=== PATIENT | female | born 1955 | race Caucasian/White ===

== ENCOUNTER → 2020-06-14 14:37 | Outpatient (CLI) | payer MEDICARE, SELFPAY ==
--- NOTE | ~2020-06-14 | MM_ITS ---
EXAMINATION: MM screening [facility] BI w emmanuel HISTORY: Screening mammogram TECHNIQUE: Craniocaudal and mediolateral oblique 3-D tomosynthesis images were obtained and synthetic 2-D images were generated. CAD analysis was submitted and interpreted. COMPARISON: 04/18/2019, 03/30/2018, 03/07/2016 BREAST PARENCHYMAL COMPOSITION: There are scattered areas of fibroglandular density. FINDINGS: There is no evidence of suspicious mass, calcification, or architectural distortion to sugg est malignancy in either breast. There has been no suspicious interval change. IMPRESSION: 1. No mammographic evidence of malignancy. 2. Recommend routine screening mammography in one year. BI-RADS Category 1: Negative Reviewed, dictated and finalized at location A.
== END ==
PROVIDERS: PCP Internal Medicine; Visit Provider Obstetrics & Gynecology Gynecology
DX: Z12.31 Encounter for screening mammogram for malignant neoplasm of breast (principal)
CPT/HCPCS: 77063; 77067

== ENCOUNTER 2020-10-21 07:22 | Emergency (ER) | payer MEDICARE, SELFPAY ==
[2020-10-21] VITALS (19 sets, daily range): BP systolic 149–185; BP diastolic 69–94; PULSE 87–107; RESP 15–30; TEMP 37.6–37.7; O2SAT 94–97
--- NOTE | ~2020-10-21 | XR_ITS ---
EXAMINATION: XR chest 1V portable DATE: 10/21/2020 07:55 INDICATION: Shortness of breath. COVID-19 pneumonia. TECHNIQUE: A single frontal view of the chest was obtained. COMPARISON: Chest 2 views 07/16/2011 FINDINGS: There are patchy airspace opacities in right mid and lower lung zones and all left lung zon es. No pleural effusion or pneumothorax. The heart size is normal. IMPRESSION: 1. Patchy airspace opacities in right mid and lower lung zones and all left lung zones, consistent wi th pneumonia. Reviewed, dictated and finalized at location A. A [place] IMPRESSION: 1. Patchy airspace opacities in right mid and lower lung zones and all left lindsey g zones, consistent with pneumonia.
--- NOTE | 2020-10-21 07:54 | ECG_ITS ---
Measurements Intervals [place] Rate: 100 P: 37 [place]: 157 QRS: -45 QRSD: 102 T: 19 QT: 310 QTc: 400 Interpretive Statements SINUS TACHYCARDIA LEFT ATRIAL ENLARGEMENT INCOMPLETE RIGHT BUNDLE BRANCH BLOCK LEFT ANTERIOR FASCICULAR BLOCK BORDERLINE T WAVE ABNORMALITY- INFERIOR LEADS ABNORMAL ECG Electronically Signed On 10-21-2020 11:26:50 CRM SYSTEM ADMINISTRATOR by Niranjan Brice D.O.
[2020-10-21 08:03] LABS: Basophils Percent Auto 0.3 % (0.2-1.2); Eosinophils Percent Auto 0.1 % (0-4.4); Hematocrit 39.7 % (37.0-47.0); Hemoglobin 13.3 g/dL (12.0-15.0); Immature Granulocyte Absolute 0.07 K/mm3 (0.00-0.031); Immature Granulocyte Percent A 0.7 % (0-0.5); Lymphocytes Absolute Auto 0.84 K/mm3 (0.9-3.2); Lymphocytes Percent Auto 7.9 % (18.3-44.2); Mean Corpuscular HGB Conc 33.5 g/dl (32-36); Mean Corpuscular Hemoglobin 29.6 pg (26-34); Mean Corpuscular Volume 88.2 fl (80-100); Mean Platelet Volume 9.8 fl (7.4-10.4); Monocytes Absolute Auto 0.6 K/mm3 (0.1-0.6); Monocytes Percent Auto 5.6 % (2.6-8.5); Neutrophils Absolute Auto 9.1 K/mm3 (1.3-6.7); Neutrophils Percent Auto 85.4 % (45.5-73.1); Platelet Count Result 206 k/mm3 (150-375); Red Cell Distribution Width 12.4 % (11.5-14.5); White Blood Count 10.6 K/mm3 (4.5-10.0)
--- NOTE | 2020-10-21 08:04 | ED.GENADULT ---
HPI - General Adult General Chief complaint: Fever Stated complaint: FEVER, +COVID Time Seen by Provider: 10/21/20 07:35 Source: patient History of Present Illness HPI narrative: Patient is a 64 y/o female complaining of fever starting 2 days ago. She states that her fever was up to 101.5. She state that she took Tylenol and Ibuprofen, which did not help much. She also has headache and cough. She denies any neck pain or stiffness. She tested positive for COVID on 10/10/20. However, she did not have a fever at that time. She states that she had a cough and loss of taste and smell. Related Data Home Medications Medication Instructions Recorded Confirmed diltiazem HCl PO DAILY 10/21/20 levothyroxine PO 10/21/20 lisinopril PO 10/21/20 rosuvastatin mg 10/21/20 Allergies Allergy/AdvReac Type Severity Reaction Status Date / Time No Known Allergies Allergy Verified 10/21/20 07:38 Review of Systems Constitutional: Constitutional: Denies chills, Reports fever(s), Reports headache(s) and Denies weakness Eyes: Eyes: Denies blurry vision ENT: Denies headache(s), Reports neck pain and Reports other (loss of taste and smell) Cardiovascular: Cardiovascular: Denies chest pain and Denies dyspnea Respiratory: Respiratory: Denies cough and Denies dyspnea Gastrointestinal: Gastrointestinal: Denies abdominal pain, Denies diarrhea, Denies nausea and Denies vomiting Genitourinary: Genitourinary: Denies hematuria and Denies dysuria Musculoskeletal: Musculoskeletal: Denies back pain and Denies neck pain Neurologic: Reports headache(s) and Denies weakness [facility] Family History Family History Father Family history of primary malignant neoplasm of liver Mother Family history of malignant neoplasm of uterus Family history of malignant neoplasm of breast in first degree relative Cerebrovascular accident, Onset Age: 84 Social History Social History Smoking status: Never smoker Alcohol intake: never Exam Const: General: no acute distress and well developed Orientation/consciousness: oriented to person, oriented to place, oriented to time and patient oriented x3 HENMT: Head: normocephalic Ears: external ears normal General nose exam: Normal external nose present Eyes: General: appearance normal, both eyes and all related structures Conjunctivae: conjunctivae normal Neck: Neck: normal visual inspection and full ROM Chest: Chest palpation & inspection: normal inspection of the chest and no tenderness Resp: Effort & Inspection: normal respiratory effort Auscultation: clear to auscultation bilaterally Cardio: Rate: tachycardic Rhythm: regular rhythm GI: GI Palp: No abdominal tenderness and Yes Soft to palpation Skin: General skin exam: normal color and turgor normal Neuro: General: oriented to person, oriented to place, oriented to time and patient oriented x3 Cognition (Neuro): normal cognition Extrem: General: normal to inspection, full ROM and no pedal edema Psych: Appearance: grossly normal Mental Status: mental status grossly normal Affect: normal affect Course Vital Signs Vital signs: Vital Signs Temperature 37.7 C H 10/21/20 07:34 Pulse Rate 107 H 10/21/20 07:34 Respiratory Rate 15 10/21/20 07:34 Blood Pressure 185/94 H 10/21/20 07:34 Pulse Oximetry 95 10/21/20 07:34 Temperature 37.6 C H 10/21/20 10:26 Pulse Rate 88 10/21/20 10:44 Respiratory Rate 16 10/21/20 10:44 Blood Pressure 156/88 H 10/21/20 10:44 Pulse Oximetry 96 10/21/20 10:44 Medical Decision Making Vital Signs Vital Signs: Vital Signs Temperature 37.7 C H 10/21/20 07:34 Pulse Rate 107 H 10/21/20 07:34 Respiratory Rate 15 10/21/20 07:34 Blood Pressure 185/94 H 10/21/20 07:34 Pulse Oximetry 95 10/21/20 07:34 Temperature 37.6 C H 10/21/20 10:26 Pulse Rate 88
[2020-10-21] MEDS: diphenhydrAMINE HCl INJ 50 MG/ML VIAL 25 MG IV PUSH (08:16)
[2020-10-21] MEDS: KETOROLAC 30 MG/ML VIAL (*BKC) IV PUSH (08:16)
[2020-10-21] MEDS: SODIUM CHLORIDE 0.9% IV 1,000 ML 999 ML IV CONT (08:16)
[2020-10-21] MEDS: METOCLOPRAMIDE HCL 10 MG TABLET PO (08:17)
[2020-10-21 08:24] LABS: Alanine Aminotransferase 51 U/L (4-35); Albumin Level 3.4 g/dL (3.5-5.1); Alkaline Phosphatase 89 U/L (38-126); Anion Gap 5 mmol/L (8-16); Aspartate Amino Transferase 45 U/L (14-36); Bilirubin,Total 0.5 mg/dL (0.2-1.3); Blood Urea Nitrogen 16 mg/dL (7-17); Calcium 8.3 mg/dL (8.4-10.2); Carbon Dioxide 26 mmol/L (22-30); Chloride 104 mmol/L (98-107); Estimated CRCL calculation 50 ml/min; Estimated Glomerular Filt Rate > 60; Glucose 119 mg/dL (65-105); Potassium 3.5 mmol/L (3.4-5.0); Sodium 135 mmol/L (137-145)
== END 2020-10-21 10:47 | disposition home or self-care (01) ==
PROVIDERS: Emergency Provider Emergency Medicine; PCP Internal Medicine
DX: U07.1 COVID-19 (principal); J12.82 Pneumonia due to coronavirus disease 2019; R51.9 Headache, unspecified; R00.0 Tachycardia, unspecified; I45.2 Bifascicular block; R94.31 Abnormal electrocardiogram [ECG] [EKG]
CPT/HCPCS: 36415; 71045; 80053; 85025; 93005; 96361; 96374; 96375; 99284; A9270; J1200; J1885; J7030

== ENCOUNTER → 2021-06-17 07:18 | Outpatient (CLI) | payer MEDICARE, OTHER, SELFPAY ==
--- NOTE | ~2021-06-17 | MM_ITS ---
EXAMINATION: MM screening tray BI w emmanuel HISTORY: Screening mammogram, family history of breast cancer in her mother. TECHNIQUE: Craniocaudal and mediolateral oblique 3-D tomosynthesis images were obtained and synthetic 2-D images were generated. CAD analysis was submitted and interpreted. COMPARISON: 06/14/2020, 04/18/2019, 03/30/2018 BREAST PARENCHYMAL COMPOSITION: There are scattered areas of fibroglandular density. FINDINGS: There is no evidence of suspicious mass, calcification, or architectural distortion to sugg est malignancy in either breast. There has been no suspicious interval change. IMPRESSION: 1. No mammographic evidence of malignancy. 2. Recommend routine screening mammography in one year. BI-RADS Category 1: Negative Reviewed, dictated and finalized at location A.
== END ==
PROVIDERS: PCP Internal Medicine; Visit Provider Obstetrics & Gynecology Gynecology
DX: Z12.31 Encounter for screening mammogram for malignant neoplasm of breast (principal)
CPT/HCPCS: 77063; 77067

== ENCOUNTER → 2021-07-18 10:15 | Outpatient (CLI) | payer MEDICARE, OTHER, SELFPAY ==
--- NOTE | ~2021-07-18 | DEXA_ITS ---
Bone Density Report Name: Maureen Mcmahon Age: 65 Sex: Female Ethnicity: White Date of : 1955 Indication: postmenopausal; screening for osteoporosis; parental hip fracture; hysterectomy; Referring Provider: UMANG STRICKLAND Study: Bone densitometry was performed. Exam Date: July 18, 2021 Accession number: [id number] Bone Density: Region BMD T-score Z-score Classification AP Spine (L1-L4) 1.050 0.0 2.0 Normal Femoral Neck (Left) 0.694 -1.4 0.3 Osteopenia Total Hip (Left) 0.767 -1.4 -0.1 Osteopenia Femoral Neck (Right) 0.711 -1.2 0.4 Osteopenia Total Hip (Right) 0.871 -0.6 0.8 Normal Total Hip Mean 0.819 -1.0 0.4 Normal World Health Organization criteria for BMD impression classify patients as: Normal (T-score at or above -1.0), Osteopenia (T-score between -1.0 and -2.5), or Osteoporosis (T-score at or below -2.5). 10-year Fracture Risk(1): Major Osteoporotic Fracture 16% Hip Fracture 1.6% Reported Risk Factors: [place] (), Neck BMD=0.694, BMI=28.0, parental fracture (1) FRAX(R) Version 3.08. Fracture probability calculated for an untreated patient. Fracture probability may be lower if the patient has received treatment. Previous Exams: Region Exam Age BMD T-score BMD Change BMD Change Date g/cm2 vs Baseline vs Previous AP Spine(L1-L4) 07/18/2021 65 1.050 0.0 -0.023* 0.042* 03/06/2017 61 1.008 -0.4 -0.065* 0.017 02/28/2013 57 0.991 -0.5 -0.082* -0.019 02/20/2010 54 1.010 -0.3 -0.064* -0.064* 10/09/2006 50 1.073 0.2 Total Hip(Left) 07/18/2021 65 0.767 -1.4 -0.147* -0.086* 03/06/2017 61 0.854 -0.7 -0.060* -0.065* 02/28/2013 57 0.919 -0.2 0.005 0.002 02/20/2010 54 0.917 -0.2 0.003 0.003 10/09/2006 50 0.914 -0.2 Total Hip(Right) 07/18/2021 65 0.871 -0.6 -0.107* -0.042* 03/06/2017 61 0.914 -0.2 -0.065* -0.014 02/28/2013 57 0.927 -0.1 -0.051* 0.037* 02/20/2010 54 0.891 -0.4 -0.087* -0.087* 10/09/2006 50 0.978 0.3 *Denotes significance at 95% confidence level, LSC for AP Spine = 0.022 g/cm2, LSC for Total Hip = 0.027 g/cm2 Clinical Information Provided by Patient: Parent has had a hip fracture Has used the following medications: Vitamin D Has the following medical conditions: Hysterectomy Patient jodie
== END ==
PROVIDERS: PCP Internal Medicine; Visit Provider Obstetrics & Gynecology Gynecology
DX: Z78.0 Asymptomatic menopausal state (principal); M85.852 Other specified disorders of bone density and structure, left thigh; M85.851 Other specified disorders of bone density and structure, right thigh
CPT/HCPCS: 77080

== ENCOUNTER → 2022-07-22 13:43 | Outpatient (CLI) | payer MEDICARE, OTHER, SELFPAY ==
--- NOTE | ~2022-07-22 | MM_ITS ---
EXAMINATION: MM screening tray BI w emmanuel HISTORY: Screening mammogram TECHNIQUE: Craniocaudal and mediolateral oblique 3-D tomosynthesis images were obtained and synthetic 2-D images were generated. CAD analysis was submitted and interpreted. COMPARISON: 06/2021, 06/14/2020, 04/18/2019 bilateral screening mammogram examinations BREAST PARENCHYMAL COMPOSITION: There are scattered areas of fibroglandular density. FINDINGS: There is no evidence of suspicious mass, calcification, or architectural distortion to sugg est malignancy in either breast. There has been no suspicious interval change. IMPRESSION: 1. No mammographic evidence of malignancy. 2. Recommend routine screening mammography in one year. BI-RADS Category 1: Negative Reviewed, dictated and finalized at location A. [employer]AT[employer] OPERATIONS
== END ==
PROVIDERS: PCP Internal Medicine; Visit Provider Obstetrics & Gynecology Gynecology
DX: Z12.31 Encounter for screening mammogram for malignant neoplasm of breast (principal)
CPT/HCPCS: 77063; 77067

== ENCOUNTER 2023-06-15 11:48 | Outpatient (CLI) | payer MEDICARE, OTHER, SELFPAY ==
--- NOTE | 2023-06-15 12:32 | ECG_ITS ---
Measurements Intervals [place] Rate: 80 P: 31 ID: 160 QRS: -46 QRSD: 111 T: 10 QT: 370 QTc: 429 Interpretive Statements SINUS RHYTHM POSSIBLE LEFT ATRIAL ENLARGEMENT [-0.1mV P WAVE IN V1/V2] LEFT ANTERIOR FASCICULAR BLOCK [QRS AXIS <= -45, QR IN I, RS IN II] ABNORMAL ECG COMPARED TO ECG 10/21/2020 08:07:35 NO SIGNIFICANT CHANGE Electronically Signed On 06-15-2023 13:43:33 CDT by Juno Horton M.D.
[2023-06-15 12:56] LABS: Basophils Absolute Auto 0.1 K/mm3 (0.0-0.1); Basophils Percent Auto 0.7 % (0.2-1.2); Eosinophils Absolute Auto 0.2 K/mm3 (0-0.3); Eosinophils Percent Auto 2.1 % (0-4.4); Hematocrit 44.8 % (37.0-47.0); Hemoglobin 14.6 g/dL (12.0-15.0); Immature Granulocyte Absolute 0.01 K/mm3 (0.00-0.031); Immature Granulocyte Percent A 0.1 % (0-0.5); Lymphocytes Absolute Auto 1.37 K/mm3 (0.9-3.2); Lymphocytes Percent Auto 19.3 % (18.3-44.2); Mean Corpuscular HGB Conc 32.6 g/dl (32-36); Mean Corpuscular Hemoglobin 29.1 pg (26-34); Mean Corpuscular Volume 89.4 fl (80-100); Monocytes Absolute Auto 0.5 K/mm3 (0.1-0.6); Monocytes Percent Auto 6.6 % (2.6-8.5); Neutrophils Absolute Auto 5.1 K/mm3 (1.3-6.7); Neutrophils Percent Auto 71.2 % (45.5-73.1); Platelet Count Result 336 k/mm3 (150-375); Red Blood Count 5.01 M/mm3 (4.2-5.4); Red Cell Distribution Width 12.4 % (11.5-14.5); White Blood Count 7.1 K/mm3 (4.5-10.0)
[2023-06-15 12:57] LABS: Appearance Urine Clear (Clear); Bacteria Urine None Seen /hpf; Bilirubin Urine Negative (Negative); Blood Urine Trace (Negative); Color Urine Yellow (Yellow); Glucose Urine UA Negative (Negative); Ketones Urine Negative (Negative); Leukocyte Esterase Ur Trace LEU/UL (Negative); Nitrate Urine Negative (Negative); Non Pathogenic Casts 0-2; Protein Urine Negative (Negative); RBC Urine 0-2 /hpf (0-2); Specific Grav Ur 1.007 (1.001-1.035); Squamous Epithelial Cell Urine None seen /hpf (Few); Urobilinogen Urine 0.2 mg/dL (<2.0); WBC Urine 0-5 /hpf; pH Urine 7.5 (5.0-9.0)
[2023-06-15 12:59] LABS: Add Urine Microscopic? YES
[2023-06-15 13:02] LABS: Anion Gap 8 mmol/L (8-16); Blood Urea Nitrogen 18 mg/dL (7-17); Calcium 9.8 mg/dL (8.4-10.2); Carbon Dioxide 27 mmol/L (22-30); Chloride 105 mmol/L (98-107); Estimated Glomerular Filt Rate > 60; Glucose 102 mg/dL (65-110); Potassium 3.6 mmol/L (3.4-5.0); Sodium 140 mmol/L (137-145)
== END 2023-06-15 11:49 | disposition home or self-care (01) ==
PROVIDERS: PCP Internal Medicine; Visit Provider Nurse Practitioner Family
DX: I10 Essential (primary) hypertension (principal); M17.9 Osteoarthritis of knee, unspecified; I44.4 Left anterior fascicular block
CPT/HCPCS: 36415; 80048; 81001; 85025; 93005

== ENCOUNTER 2023-06-24 09:50 | Outpatient (CLI) | payer MEDICARE, OTHER, SELFPAY ==
[2023-06-24 11:02] LABS: Albumin Level 4.3 g/dL (3.5-5.1)
[2023-06-24 11:05] LABS: INR 0.9; Prothrombin Time 12.8 Seconds (11.1-14.7)
[2023-06-24 11:07] LABS: Partial Thromboplastin Time 28.5 SECONDS (22.3-36.8)
[2023-06-24 11:08] LABS: Urine Cotinine NEGATIVE
[2023-06-24 12:04] LABS: Hemoglobin A1C 5.4 % (<5.7)
== END 2023-06-24 09:51 | disposition home or self-care (01) ==
LOC: ANHSURGERY 09:56
PROVIDERS: PCP Internal Medicine; Visit Provider Orthopaedic Surgery
DX: M17.12 Unilateral primary osteoarthritis, left knee (principal); Z01.818 Encounter for other preprocedural examination
CPT/HCPCS: 80307; 82040; 83036; 85610; 85730; 87081

== ENCOUNTER 2023-07-02 15:17 | Outpatient (CLI) | payer MEDICARE, OTHER, SELFPAY ==
--- NOTE | 2023-07-02 | ECHO_ITS ---
Patient Info Name: Maureen Mcmahon Age: 67 years : 1955 Gender: Female Ht: 63 in Wt: 148 lbs BSA: 1.74 m2 HR: 98 bpm BP: 181 / 95 mmHg Heart Rhythm: Sinus Rhythm Technical Quality: Good Exam Date: 07/02/2023 3:38 PM Exam Location: [facility] Patient Status: Outpatient Admit Date: 07/02/2023 Staff Ordering Physician: Dayday Cain MD Jointer Operator: Eileen Singh RDCS Attending Provider: Dayday Cain MD Exam Type: CA echo doppler color flow Study Info Indications - pre op clearance Complete two-dimensional, color flow and Doppler transthoracic echocardiogram is performed. Summary 1. Complete two-dimensional, color flow and Doppler transthoracic echocardiogram is performed. 2. Left ventricular chamber dimension is normal. 3. Left ventricular systolic function is normal, estimated at 65-70%. 4. There is no increased left ventricular wall thickness. 5. The left ventricular diastolic function is indeterminate with the information provided due to incomplete evaluation. 6. There is no aortic valve stenosis with a peak velocity of 162 cm/s, mean gradient of 7 mmHg, and aortic valve area of 2.2 cm2. 7. There is no aortic valve regurgitation. 8. There is trace tricuspid valve regurgitation. 9. No pulmonary hypertension, estimated pulmonary arterial systolic pressure is 25 mmHg. 10. There is trace to mild mitral valve regurgitation. Left Ventricle Left ventricular chamber dimension is normal. Left ventricular systolic function is normal, estimated at 65-70%. There is no increased left ventricular wall thickness. The left ventricular diastolic function is indeterminate with the information provided due to incomplete evaluation. Right Ventricle Right ventricular chamber dimension is normal. Right ventricular systolic function is normal. Left Atria Left atrial chamber dimension is normal. Right Atria Right atrial chamber dimension is normal. Aortic Valve The aortic valve is trileaflet. There is no aortic valve stenosis with a peak velocity of 162 cm/s, mean gradient of 7 mmHg, and aortic valve area of 2.2 cm2. There is no aortic valve regurgitation. Pulmonic Valve The pulmonic valve is normal. There is trace pulmonic regurgitation. Mitral Valve The mitral valve has normal leaflets. There is trace to mild mitral valve regurgitation. Tricuspid Valve The tricuspid valve leaflets are normal. There is trace tricuspid valve regurgitation. No pulmonary hypertension, estimated pulmonary arterial systolic pressure is 25 mmHg. Pericardium/Pleural The pericardium appears normal. There is trivial pericardial effusion. Inferior Vena Cava Normal inferior vena cava with >50% collapse upon inspiration consistent with normal right atrial pressure, 5 mmHg. Aorta The aortic root size at the sinus of Valsalva is normal. Left Ventricular Outflow Tract Name Value Normal LVOT 2D LVOT Diameter 1.7 cm LVOT Doppler LVOT Peak Gradient 5 mmHg LVOT Mean Gradient 3 mmHg LVOT VTI 30 cm LVOT VTI/AV VTI Ratio 0.9 LVOT Stroke Volume 72 ml LVOT CO
== END 2023-07-02 15:18 | disposition home or self-care (01) ==
PROVIDERS: PCP Internal Medicine; Visit Provider Internal Medicine Cardiovascular Disease
DX: R01.1 Cardiac murmur, unspecified (principal); Z01.810 Encounter for preprocedural cardiovascular examination
CPT/HCPCS: 93306

== ENCOUNTER 2023-07-08 01:26 | Day surgery (SDC) | payer MEDICARE, OTHER, SELFPAY ==
--- NOTE | 2023-06-24 09:41 | PC.NURSE ---
Addendum entered by Heather Carson RN 06/24/23 10:42: PT AWARE SHE CAN TAKE TYLENOL DAY OF SURGERY IF NEEDED FOR PAIN Original Note: PRE-OP INSTRUCTIONS, PLEASE READ CAREFULLY Report to the Outpatient Waiting Room, entrance under the green pavilion located off [facility], at time _0600_ on date _07/08/23_. Planned Procedure Time: _0730_. Time changes happen often and if your time is changed the preop area will call you the afternoon before. - You and your visitor will be asked to self-screen and do not enter if you have any COVID symptoms. - A mask is optional within the hospital at this time. -VISITING HOURS 8AM-8PM Patients may have clear liquids (water, carbonated beverages, clear teas, apple juice) until 3 hours prior to surgery (0434 AM) with a maximum of 20 ounces. - No food from midnight until time of surgery Take the following medications with a SIP of water the morning of surgery: _DILTIAZEM, LEVOTHYROXINE_ DO NOT STOP ANY OF YOUR OTHER PRESCRIPTION MEDICATIONS PRIOR TO SURGERY ?EXCEPT THE FOLLOWING Medications to discontinue per ANESTHESIA - _MULTIVITAMIN/SUPPLEMENTS 3 DAYS PRIOR TO SURGERY, Date to take last dose 07/04/23_ Please no make-up, nail indonesian, hairspray, perfume, deodorant, or body powder the day of surgery. No jewelry (including any body piercings) or valuables the day of surgery, leave them at home. Please take a shower or bath the night before, or the morning of, surgery with an antibacterial soap. Wear comfortable, loose fitting clothing. - Jewelry must be removed prior to entering the operating room. Rings and piercings that are not removed may be cut off. - The hospital will not accept responsibility for valuables. - Please leave all valuables, including medications, at home the day of surgery. If you are going home after surgery, a licensed road train driver must drive you home. - NO public transportation without another adult if you receive anesthesia. - We recommend that an adult stay with you for 24 hours following discharge. - We also recommend that you do not drive, make important decision, drink alcoholic beverages, or take any drugs that were not prescribed by your health care provider for at least 24 hours after your discharge time. Follow any additional instructions given to you from your surgeon. HIBICLENS DIRECTED If you or anyone in your household have experienced Covid symptoms in the past week, please notify your surgeon or the nurse liaison at the phone number below for possible testing. Instructions given to _PATIENT_and asked if any additional questions and then verbalized understanding. Patient advised to call surgeon office or pre surgery nurse liaison [phone] if any additional questions.
[2023-06-24 10:20] VITALS: BP 166/86; PULSE 76; RESP 18; TEMP 37.5; O2SAT 99; BMI 27.3
--- NOTE | 2023-07-07 13:03 | WPDANESEPPF ---
Anes - Initial Pre Proc Eval Procedure: Operation Date: 07/08/23 07:30 Proposed Procedures p Left Total Knee Arthroplasty - Eric Andrade MD Date/Time: 07/07/23 13:03 Surgeon: Eric Andrade MD Pre Op Diagnosis: Lt Knee DJD Patient Data Age: 67 Gender: F Height: 1.59 m Weight: 69 kg Last Vital Signs Temp 37.5 C 06/24/23 10:20 Pulse 76 06/24/23 10:20 Resp 18 06/24/23 10:20 BP 166/86 H 06/24/23 10:20 Pulse Ox 99 06/24/23 10:20 O2 Del Method Room Air 06/24/23 10:20 Allergies Allergy/AdvReac Type Severity Reaction Status Date / Time No Known Allergies Allergy Verified 07/08/23 06:22 Home Medications Medication Instructions Recorded Confirmed Type diltiazem HCl 240 mg 240 mg PO DAILY 10/21/20 07/08/23 History capsule,extended release 24 hr levothyroxine 75 mcg tablet 75 mcg PO QAM 10/21/20 07/08/23 History lisinopril 20 mg tablet 20 mg PO QAM 10/21/20 07/08/23 History rosuvastatin 5 mg tablet 5 mg DAILY 10/21/20 07/08/23 History chlorhexidine gluconate 4 % 1 applic topical ONCE #237 mL 06/15/23 07/08/23 Rx topical liquid (Hibiclens) hydrochlorothiazide 12.5 mg tablet 12.5 mg PO DAILY 06/15/23 07/08/23 History acetaminophen 650 mg 1,300 mg PO Q8H PRN Pain 06/24/23 07/08/23 History tablet,extended release calcium carbonate 600 mg-vitamin 2 cap PO QAM 06/24/23 07/08/23 History D3 12.5 mcg (500 unit) capsule (Calcium 600 with Vitamin D3) melatonin 10 mg tablet 10 mg PO HS PRN Sleep 06/24/23 07/08/23 History multivitamin with calcium and 1 tablet PO QAM 06/24/23 07/08/23 History minerals-folic acid 200 mcg tablet (One-A-Day Proactive 65 Plus) phenazopyridine 95 mg tablet 95 mg PO QAM 06/24/23 07/08/23 History Patient hx anesthesia problems: none Family hx anesthesia problems: none Results Review: All pre-operative results and documents have been reviewed as part of the pre-operative evaluation. [facility] Past Medical History Medical History (Updated 07/07/23 @ 13:03 by Zacarias Mejias DO) Degenerative joint disease of knee Elevated HDL Heart murmur HTN (hypertension) Hypothyroidism Osteoarthritis of right knee Primary osteoarthritis of left knee Surgical History Surgical History (Updated 07/07/23 @ 13:03 by Zacarias Mejias DO) History of appendectomy History of arthroscopy of left knee History of hysterectomy for benign disease History of meniscectomy of right knee S/P right knee arthroscopy Family History Family History (Updated 06/17/23 @ 08:25 by Janna Trejo) Father Family history of primary malignant neoplasm of liver Mother Family history of malignant neoplasm of uterus Family history of malignant neoplasm of breast in first degree relative Cerebrovascular accident, Onset Age: 84 Hypertension Social History Social History (Updated 06/17/23 @ 08:25 by Janna Trejo) Smoking status: Never smoker Second hand tobacco smoke exposure: No Additional smoking assessment comments: PT DENIES ALL FORMS OF TOBACCO USE Alcohol intake: never Substance use: never Substance use type: does not use Living arrangements: with family Occupation/Education: retired Gender identity (if verbalized by the patient): Female Sexual Orientation (if Verbalized by the Patient): Straight or Heterosexual Spiritual care concerns: No Anes - Eval Final PreProcedure Day of Procedure 07/07/23 13:03 Patient weight: overweight Heart: regular rate and rhythm Lungs: clear to auscultation Airway: Mallampati scale class II Neurological: alert and oriented Last oral intake: >/= 8 hours ASA classification: II Emergent: no Anesthetic plan: proceed Anesthesia type and monitoring: general LMA and standard monitoring Results Review: All pre-operative results and documents have been reviewed as part of the pre-operative evaluation. Informed Consent: The patient's anesthetic plan and its attendant ris
[2023-07-08] VITALS (14 sets, daily range): BP systolic 114–157; BP diastolic 64–92; PULSE 64–95; RESP 14–20; TEMP 36.2–37.4; O2SAT 93–100; BMI 27.0
--- NOTE | ~2023-07-08 | XR_ITS ---
EXAMINATION: [id number] DATE: 07/08/2023 10:18 INDICATION: Postoperative evaluation following left total knee arthroplasty. TECHNIQUE: Anteroposterior and lateral views of the left knee were obtained. COMPARISON: None. FINDINGS: Left total knee arthroplasty without patellar resurfacing appears well seated and in near anatomic al ignment. No fractures identified. Proximal patellar enthesophyte. Skin merry and expected postoper ative subcutaneous and intra-articular gas. IMPRESSION: 1. Left total knee arthroplasty, negative for postoperative purposes. Reviewed, dictated and finalized at location A.
[2023-07-08] MEDS: ACETAMINOPHEN 500 MG TABLET 1000 MG PO (06:32)
[2023-07-08] MEDS: LACTATED RINGERS 1,000 ML 30 ML IV CONT ×2 (06:40→10:08)
[2023-07-08] MEDS: TRANEXAMIC ACID 1,000MG/ISO100 1,000 MG/100 ML BAG 200 MG IVPB (07:02)
--- NOTE | 2023-07-08 07:04 | WPDANESPNB ---
Anes - Peripheral Nerve Block Date/Time: 07/08/23 07:04 I have discussed with the patient/family/POA the placement of a peripheral nerve block for post-operative pain management, including associated risks, benefits, complications, and side effects. Alternative methods of post-operative analgesia were detailed. Questions were solicited and answers provided to the satisfaction of the patient/family/POA. Time-Out: A pre-procedural Time-Out was completed immediately before starting the procedure and confirmed: Patient Identification, Site, Procedure, Patient Position and the Availability of Requisite Equipment. Clinical Indications: Acute post-operative pain management requested by the operative surgeon. Nerve Block Insertion Note Anes-nerve block: adductor canal left Patient position: supine Skin prep: chlorhexidine Needle: 22 gauge, stimulating, insulated echogenic needle. Needle length: 80 mm Technique: ultrasound Injectate: bupivacaine 0.5% with epi 5 mcg/ml (30cc - no epi) Observations: tolerated well Complications: none Procedure start time:: 726 Procedure end time:: 730
--- NOTE | 2023-07-08 07:20 | WPDHPUPDATE1 ---
History and Physical Update Update Date/Time: 07/08/23 07:20 History and Physical has been reviewed, including an updated exam of the patient. There are NO changes in the patient's condition. Risks, benefits, and alternatives have been discussed and questions answered. Patient agrees to proceed with procedure.
[2023-07-08] MEDS: ceFAZolin 2 GM/D5W 50 ML 2 GM/50 ML BAG IVPB ×2 (07:36→15:46)
[2023-07-08] MEDS: GENTAMICIN BONE CEMENT REFOBACIN 1 EACH TOPICAL (08:44)
[2023-07-08] MEDS: TRANEXAMIC ACID 1,000 MG/10 ML AMPUL 1000 MG IV PUSH (09:08)
--- NOTE | 2023-07-08 10:07 | P.OP_ITS ---
Procedure Note - Detailed Date of Procedure 07/08/23 Pre-op Diagnosis Lt Knee DJD Post-op Diagnosis Same Procedure Performed L TKA Surgeon Eric Andrade MD Anesthesia General Description of Procedure THE LEFT KNEE WAS PREPPED AND DRAPED IN THE STERILE FASHION. A MIDLINE SKIN INCISION WAS MADE. A MEDIAL PARAPATELLAR ARTHROTOMY WAS MADE. THE PATELLA WAS EVERTED. AN INTRAMEDULLARY ASHLEY WAS PLACED IN THE FEMUR. A DISTAL FEMORAL CUT WAS MADE IN 5 DEGREES OF VALGUS REMOVING APPROXIMATELY 9 MM OF BONE FROM THE DISTAL FEMUR. THE FEMUR WAS SIZED TO 65. A 65 FEMORAL CUTTING BLOCK WAS PLACED IN 3 DEGREES OF EXTERNAL ROTATION AND IN ALIGNMENT WITH GILLIAN'S LINE AND THE TRANSEPICONDYLAR AXIS. ANTERIOR POSTERIOR AND CHAMFER CUTS WERE MADE. THE CUTS WERE EXCELLENT. NEXT AN INTRAMEDULLARY CUTTING GUIDE WAS PLACED IN THE TIBIA. A TRANS TIBIAL CUT WAS MADE ALONG THE LONG AXIS OF THE TIBIA. APPROXIMATELY 10 MM OF BONE WAS REMOVED FROM THE HIGH SIDE OF THE TIBIA. THE TIBIA WAS THEN PLANED TO A SMOOTH SURFACE. POSTERIOR FEMORAL OSTEOPHYTES WERE REMOVED FROM THE FEMORAL CONDYLES. A 71 TIBIAL TRIAL WAS PLACED IN ALIGNMENT WITH THE 1/3 MEDIAL ASPECT OF THE TIBIAL TUBERCLE. THEN A 65 FEMORAL TRIAL COMPONENT WAS PLACED. BOTH HAD EXCELLENT FITS. EVENTUALLY A 12 MM CR POLYETHYLENE TRIAL COMPONENT WA S PLACED. THE KNEE WAS TAKEN THROUGH A RANGE OF MOTION. THE KNEE CAME OUT TO FULL EXTENSION. THERE WAS NO ABNORMAL TILT TO THE PATELLA. THERE WAS GOOD A/P AND VARUS/VALGUS STABILITY. THERE WAS NO EXCESSIVE ROLL BACK WITH FLEXION. THE TRIAL COMPONENTS WERE REMOVED. THEN A 65 FEMORAL COMPONENT AND 71 TIBIAL COMPONENT WITH A 12 CR POLYETHYLENE COMPONENT WERE CEMENTED INTO PLACE. ONCE THE CEMENT WAS HARD THE KNEE WAS TAKEN THROUGH A ROM AGAIN AND FOUND TO BE STABLE WITH NO PATELLA TILT NO EXCESSIVE ROLL BACK WITH FLEXION AND GOOD STABILITY WITH COMPLETE AND FULL EXTENSION. THE KNEE WAS IRRIGATED WITH STERILE BETADINE AND WATER FOR ABOUT 3 MINUTES. THE BLEEDERS WERE CAUTERIZED. THE ARTHROTOMY WAS REPAIRED WITH NUMBER 1 VICRYL. THE SUB CUTANEOUS LAYER WITH 2-0 VICRYL AND THE SKIN WITH GIFTY. THE WOUND WAS WASHED AND A STERILE DRESSING WAS APPLIED. PATIENT WAS EXTUBATED. Estimated Blood Loss -150.0 Pathology None sent Complications No immediate complications Condition Stable Disposition PACU
[2023-07-08] MEDS: fentaNYL CITRATE INJ (*CRX) 100 MCG/2 ML VIAL 25 MCG IV PUSH ×8 (10:20→11:34)
[2023-07-08] MEDS: SODIUM CHLORIDE 0.9% IV 1,000 ML 125 ML IV CONT (12:40)
[2023-07-08] MEDS: KETOROLAC 15 MG/ML VIAL (*BKC) IV PUSH ×2 (12:41→18:42)
[2023-07-08] MEDS: oxyCODONE/ACETAMINOPHEN (*CRX) 5-325 MG TABLET 1 TABLET PO ×2 (15:46→21:05)
[2023-07-08] MEDS: SENNA/DOCUSATE SODIUM TABLET 2 TAB PO (18:42)
--- NOTE | 2023-07-08 19:48 | ADMGEN ---
This patient, Maureen Mcmahon, was admitted to [facility] Surg Room 304-01. Patient/family oriented to hospital policies and general routines including ID bracelet, bed and alarms, visiting hours, pain management, procedures, bathroom and other care routines, personal items, smoking policy, room service/diet, and visiting hours. Information on how to activate the Rapid Response Team has been discussed. Patient/Family are encouraged to report perceived risks to care and to ask questions if they do not understand what they are told or what they should do.
[2023-07-08] MEDS: FAMOTIDINE 20 MG TABLET PO (21:06)
[2023-07-08] MEDS: ASPIRIN 325 MG ENTERIC TABLET PO (21:06)
[2023-07-09] MEDS: ceFAZolin 2 GM/D5W 50 ML 2 GM/50 ML BAG IVPB ×2 (00:07→09:37)
[2023-07-09] MEDS: KETOROLAC 15 MG/ML VIAL (*BKC) IV PUSH ×3 (00:08→12:38)
[2023-07-09 00:47] VITALS: BP 125/62; PULSE 80; RESP 20; TEMP 37.1; O2SAT 96
[2023-07-09 04:20] VITALS: BP 137/69; PULSE 76; RESP 18; TEMP 37.2; O2SAT 96
[2023-07-09] MEDS: LEVOTHYROXINE SODIUM 75 MCG TABLET PO (05:51)
[2023-07-09 06:26] LABS: Basophils Percent Auto 0.3 % (0.2-1.2); Eosinophils Absolute Auto 0.1 K/mm3 (0-0.3); Eosinophils Percent Auto 0.4 % (0-4.4); Hematocrit 33.6 % (37.0-47.0); Hemoglobin 10.7 g/dL (12.0-15.0); Immature Granulocyte Absolute 0.07 K/mm3 (0.00-0.031); Immature Granulocyte Percent A 0.4 % (0-0.5); Lymphocytes Absolute Auto 0.76 K/mm3 (0.9-3.2); Lymphocytes Percent Auto 4.8 % (18.3-44.2); Mean Corpuscular HGB Conc 31.8 g/dl (32-36); Mean Corpuscular Hemoglobin 29.3 pg (26-34); Mean Corpuscular Volume 92.1 fl (80-100); Mean Platelet Volume 10.5 fl (7.4-10.4); Monocytes Absolute Auto 1.1 K/mm3 (0.1-0.6); Monocytes Percent Auto 6.9 % (2.6-8.5); Neutrophils Absolute Auto 13.9 K/mm3 (1.3-6.7); Neutrophils Percent Auto 87.2 % (45.5-73.1); Platelet Count Result 265 k/mm3 (150-375); Red Blood Count 3.65 M/mm3 (4.2-5.4); Red Cell Distribution Width 12.6 % (11.5-14.5); White Blood Count 15.9 K/mm3 (4.5-10.0)
[2023-07-09 06:42] LABS: Anion Gap 6 mmol/L (8-16); Blood Urea Nitrogen 17 mg/dL (7-17); Calcium 8.7 mg/dL (8.4-10.2); Carbon Dioxide 24 mmol/L (22-30); Chloride 106 mmol/L (98-107); Estimated CRCL calculation 53 ml/min; Estimated Glomerular Filt Rate > 60; Glucose 119 mg/dL (65-110); Potassium 4.1 mmol/L (3.4-5.0); Sodium 136 mmol/L (137-145)
[2023-07-09 08:00] VITALS: BP 143/74; PULSE 73; RESP 16; TEMP 37.3; O2SAT 99
[2023-07-09] MEDS: ROSUVASTATIN 5 MG TABLET BY MOUTH (09:21)
[2023-07-09] MEDS: FAMOTIDINE 20 MG TABLET PO (09:21)
[2023-07-09] MEDS: lisinopriL 20 MG TABLET PO (09:21)
[2023-07-09] MEDS: hydroCHLOROthiazide 12.5 MG CAPSULE PO (09:21)
[2023-07-09] MEDS: dilTIAZem HCL CD 240 MG CAP.24HR PO (09:21)
[2023-07-09] MEDS: ASPIRIN 325 MG ENTERIC TABLET PO (09:21)
[2023-07-09] MEDS: PHENAZOPYRIDINE HCL 100 MG TABLET PO (09:21)
--- NOTE | 2023-07-09 09:23 | PM.PNORT ---
Progress Note: A&P Assessment and Plan (1) S/P total knee arthroplasty: Qualifiers: Laterality: left Qualified Code(s): Z96.652 - Presence of left artificial knee joint Code(s): Z96.659 - Presence of unspecified artificial knee joint Status: Acute Assessment and Plan: POD #1 : Left TKA Continue PT/OT. WBAT. Walker. HIGH FALL RISK. Continue pain control. Ice Knee. Protect skin. DVT prophylaxis with Aspirin. SCDs. Incentive Spirometry Use reviewed. Monitor Dressing. Change prior to discharge. Bowel Regimen. Dispo: Home with Home Health pending progress with PT/OT Plan Reviewed postoperative labs, vitals, radiographs and assessment with attending MD, Dr. Andrade. Agrees with current plan as indicated above. No further recommendations. Subjective Subjective Date/Time Seen: 07/09/23 09:23 Post Op day: 1 (Left TKA ) Principal diagnosis: Left Knee DJD Interval history: POD #1: Left TKA Pain well controlled. Working very well with PT/OT. No new concerns. Hopeful for discharge today. Review of Systems Review of Systems: All systems reviewed & are unremarkable except as noted in HPI and below Constitutional: Constitutional: Denies fever(s) and Denies headache(s) ENT: Denies headache(s) Cardiovascular: Cardiovascular: Denies chest pain, Denies diaphoresis, Denies palpitations and Denies dyspnea Respiratory: Respiratory: Denies dyspnea Gastrointestinal: Gastrointestinal: Denies abdominal pain, Denies constipation, Denies nausea and Denies vomiting Genitourinary: Genitourinary: Reports nocturia and Denies dysuria Musculoskeletal: Musculoskeletal: Reports arthralgias (Left Knee ), Reports joint swelling (Left Knee ) and Reports limited range of motion (ROM limited due to recent surgical intervention LEFT Knee ) Neurologic: Denies headache(s) Endocrine: Endocrine: Denies palpitations Exam Const: General: comfortable and no acute distress Resp: Effort & Inspection: normal respiratory effort Cardio: Rate: regular rate Rhythm: regular rhythm GI: GI Palp: Yes Soft to palpation, No Tenderness to palpation present (GI) and No Guarding due to palpation present (GI) Skin: General skin exam: wounds noted (see extremity assessment ) Wounds: wounds noted (see extremity assessment ) Neuro: Cognition (Neuro): normal cognition Other: NV intact aside from block. Moves toes. Sensation intact to light touch. +ankle dorsiflexion/plantarflexion. Extrem: Left lower extremity: normal to inspection, normal capillary refill, knee Details: tenderness (diffuse ) Location: of the patella, swelling (moderate consistent to recent surgery ), abnormal ROM (limited due to recent surgery ) Details: pain with active ROM and pain with passive ROM and ecchymosis (as expected with recent surgery. NO hematoma. ), lower leg (Negative Jin's Sign ), ankle (+ankle dorsiflexion/plantarflexion ) Details: normal to inspection, no edema and normal ROM; no tenderness and no swelling and foot Details: normal capillary refill, toes with normal ROM, vascular exam Details: dorsalis pedis pulse present and motor-sensory exam light-touch normal; no tenderness Other: Incision left TKA dressing c/d/i. No hematoma. No signs of infection. No wound dehiscence. Psych: Mental Status: mental status grossly normal Objective Data Vital Signs Vital Signs: Vital Signs - 24 hr 07/08/23 10:08 07/08/23 10:30 07/08/23 10:45 Temperature 36.2 C L Pulse Rate 75 76 71 Respiratory Rate 20 18 16 Blood Pressure 123/64 149/65 H 142/74 H Pulse Oximetry 94 95 94 Oxygen Delivery Simple Face Mask Simple Face Mask Nasal Cannula Oxygen Flow Rate 6 6 2 07/08/23 11:00 07/08/23 11:15 07/08/23 10:15 Temperature Pulse Rate 75 72 78 Respiratory Rate 14 14 20 Blood Pressure 137/68 134/74 129/68 Pulse Oximetry 95 95 94 Oxygen Delivery Nasal Cannula Nasal Cannula Simple Face Mask Oxygen Flow Rate 2 2 6 07/08/23 11
--- NOTE | 2023-07-09 09:48 | PM.DS ---
DS: Admitting Diagnosis Discharge Date 07/09/2023 Admitting Diagnosis Left Knee DJD DS: Discharge Diagnosis Discharge Diagnosis (1) S/P total knee arthroplasty: Qualifiers: Laterality: left Qualified Code(s): Z96.652 - Presence of left artificial knee joint Code(s): Z96.659 - Presence of unspecified artificial knee joint Status: Acute Assessment and Plan: POD #1 : Left TKA Continue PT/OT. WBAT. Walker. HIGH FALL RISK. Continue pain control. Ice Knee. Protect skin. DVT prophylaxis with Aspirin. SCDs. Incentive Spirometry Use reviewed. Monitor Dressing. Change prior to discharge. Bowel Regimen. Dispo: Home with Home Health pending progress with PT/OT Plan Reviewed postoperative labs, vitals, radiographs and assessment with attending MD, Dr. nAdrade. Agrees with current plan as indicated above. No further recommendations. DS: Summary Hospital Course Reason for hospitalization: Left TKA Hospital Course: 67 year old female admitted s/p Left TKA for postoperative medical management, pain control and mobilization with PT/OT. Patient progressed well with PT/OT. Pain and vitals remained stable throughout. The patient has been cleared to be discharged home with home health at this time. All discharge care instructions reviewed at depth. New medications reviewed. Follow up planned for 3 weeks in the outpatient orthopedic clinic with Dr. Andrade. Dr. Andrade verbalized agreement for above discharge. Status at Discharge Functional status at discharge: uses cane/walker Overall status at discharge: patient is progressing back to baseline Time Spent with Patient Time attestation: Total time spent providing and/or coordinating discharge services: Exam Const: General: comfortable and no acute distress Resp: Effort & Inspection: normal respiratory effort Cardio: Rate: regular rate Rhythm: regular rhythm Skin: General skin exam: wounds noted (see extremity assessment ) Wounds: wounds noted (see extremity assessment ) Neuro: Cognition (Neuro): normal cognition Other: NV intact aside from block. Moves toes. Sensation intact to light touch. +ankle dorsiflexion/plantarflexion. Extrem: Left lower extremity: normal to inspection, normal capillary refill, knee Details: tenderness (diffuse ) Location: of the patella, swelling (moderate consistent to recent surgery ), abnormal ROM (limited due to recent surgery ) Details: pain with active ROM and pain with passive ROM and ecchymosis (as expected with recent surgery. NO hematoma. ), lower leg (Negative Jin's Sign ), ankle (+ankle dorsiflexion/plantarflexion ) Details: normal to inspection, no edema and normal ROM; no tenderness and no swelling and foot Details: normal capillary refill, toes with normal ROM, vascular exam Details: dorsalis pedis pulse present and motor-sensory exam light-touch normal; no tenderness Other: Incision left TKA dressing c/d/i. No hematoma. No signs of infection. No wound dehiscence. Psych: Mental Status: mental status grossly normal DS: Data Data Completed and Pending Labs on day of discharge: Labs from last 24 hours 07/09/23 05:22 WBC 15.9 H RBC 3.65 L Hgb 10.7 L D Hct 33.6 L MCV 92.1 MCH 29.3 MCHC 31.8 L RDW 12.6 Plt Count 265 MPV 10.5 H Immature Gran % (Auto) 0.4 Neut % (Auto) 87.2 H Lymph % (Auto) 4.8 L [place] % (Auto) 6.9 Eos % (Auto) 0.4 Baso % (Auto) 0.3 Lymph # (Auto) 0.76 L [place] # (Auto) 1.1 H Eos # (Auto) 0.1 Baso # (Auto) 0.0 Abs Immat Gran (auto) 0.07 H Absolute Neuts (auto) 13.9 H Absolute Nucleated RBC 0.0 Nucleated RBC % 0.0 Sodium 136 L Potassium 4.1 Chloride 106 Carbon Dioxide 24 Anion Gap 6 L BUN 17 Creatinine 0.80 Estim Creat Clear Calc 53 Estimated GFR > 60 Glucose 119 H Calcium 8.7 Discharge Plan Discharge Patient Disposition: Home Health Service Discharge Instructions: Post Op Total Knee Replacement Instruction
--- NOTE | 2023-07-09 10:03 | WPDANESPN ---
Anes - Prog Note Post-Op Date/Time: 07/09/23 10:03 Cardiovascular status: normal Respiratory status: normal Airway patency: baseline Mental status: baseline Post-Op hydration status: normal Vital Signs: Last Vital Signs Temp 99.2 F 07/09/23 08:00 Pulse 73 07/09/23 08:00 Resp 16 07/09/23 08:00 BP 143/74 H 07/09/23 08:00 Pulse Ox 99 07/09/23 08:00 O2 Del Method Room Air 07/08/23 12:51 O2 Flow Rate 2 07/08/23 11:45 Pain Score (VAS): 3 I/O: Intake & Output 07/08/23 07/09/23 07/09/23 23:59 07:59 15:59 Intake Total 1050 50 Balance 1050 50 Laboratory Tests 07/09/23 05:22 07/09/23 05:22 07/09/23 05:22 WBC 15.9 H RBC 3.65 L Hgb 10.7 L D Hct 33.6 L MCV 92.1 MCH 29.3 MCHC 31.8 L RDW 12.6 Plt Count 265 MPV 10.5 H Immature Gran % (Auto) 0.4 Neut % (Auto) 87.2 H Lymph % (Auto) 4.8 L [place] % (Auto) 6.9 Eos % (Auto) 0.4 Baso % (Auto) 0.3 Lymph # (Auto) 0.76 L [place] # (Auto) 1.1 H Eos # (Auto) 0.1 Baso # (Auto) 0.0 Abs Immat Gran (auto) 0.07 H Absolute Neuts (auto) 13.9 H Absolute Nucleated RBC 0.0 Nucleated RBC % 0.0 Sodium 136 L Potassium 4.1 Chloride 106 Carbon Dioxide 24 Anion Gap 6 L BUN 17 Creatinine 0.80 Estim Creat Clear Calc 53 Estimated GFR > 60 Glucose 119 H Calcium 8.7 Post-procedural complaints: none Patient Feedback: Patient satisfied with anesthetic care.pt verbalized good pain relief with PNB
[2023-07-09 12:00] VITALS: BP 137/60; PULSE 76; RESP 14; TEMP 37; O2SAT 99
== END 2023-07-09 12:55 | disposition home health service (06) ==
LOC: ANHSURGERY 06:00 → ANH3MEDSUR 12:13
PROVIDERS: PCP Internal Medicine; Visit Provider Orthopaedic Surgery
PROC: (CPT 27447; principal; 2023-07-08 07:30)
DX: M17.12 Unilateral primary osteoarthritis, left knee (principal); G89.18 Other acute postprocedural pain; I10 Essential (primary) hypertension; E03.9 Hypothyroidism, unspecified
CPT/HCPCS: 27447; 64447; 36415; 73560; 80048; 85025; 86850; 86900; 86901; 97110; 97116; 97161; 97165; 97535; A9270; C1713; C1776; J0171; J0690; J1100; J1885; J2250; J2270; J2405; J2704; J2795; J3010; J7030; J7120

== ENCOUNTER → 2023-08-11 07:06 | Outpatient (CLI) | payer MEDICARE, OTHER, SELFPAY ==
--- NOTE | ~2023-08-11 | MM_ITS ---
EXAMINATION: MM screening tray BI w emmanuel HISTORY: Screening mammogram TECHNIQUE: Craniocaudal and mediolateral oblique 3-D tomosynthesis images were obtained and synthetic 2-D images were generated. CAD analysis was submitted and interpreted. COMPARISON: 07/22/2022, 06/2021, 06/14/2020 bilateral screening mammogram examinations BREAST PARENCHYMAL COMPOSITION: There are scattered areas of fibroglandular density. FINDINGS: There is no evidence of suspicious mass, calcification, or architectural distortion to sugg est malignancy in either breast. There has been no suspicious interval change. IMPRESSION: 1. No mammographic evidence of malignancy. 2. Recommend routine screening mammography in one year. BI-RADS Category 1: Negative Reviewed, dictated and finalized at location A. ING INSPECTOR
== END ==
PROVIDERS: PCP Internal Medicine; Visit Provider Obstetrics & Gynecology Gynecology
DX: Z12.31 Encounter for screening mammogram for malignant neoplasm of breast (principal)
CPT/HCPCS: 77063; 77067

== ENCOUNTER 2023-09-03 08:00 | Outpatient (RCR) | payer MEDICARE, OTHER, SELFPAY ==
--- NOTE | 2023-08-12 11:28 | OPREHPOC ---
Outpatient Therapy Plan of Care This is a Multidisciplinary Plan of Care that may contain components documented by all disciplines (PT, OT, and ST.) PT Problem 1 PT Problem #1 Knowledge Deficit PT Goal 1 Goal 1. Patient will perform independent HEP Target Visit 9 PT Problem 2 PT Problem #2 Pain PT Goal 1 Goal 1. Patient will report no pain with all typical ADL's Target Visit 9 PT Problem 3 PT Problem #3 Impaired Range of Motion PT Goal 1 Goal 1. Improve knee flexion to 120 for stair navigation 2. Improve knee extension to 0 for gait pattern Target Visit 9 PT Problem 4 PT Problem #4 Impaired Strength PT Goal 1 Goal 1. Improve LE MMT to 5/5 in all planes in order to perform ADL's Target Visit 9
--- NOTE | 2023-08-12 11:28 | PTOPEVAL1 ---
Assessment and note entered by Jessica Leone DPT Evaluation Information Assessment Status Evaluation Subjective Information Pt is s/p L TKA on 07/08/23. Pt reports she had home health for 3 weeks and has been discharged. Highest pain 1/10 and lowest 0/10. Pt has stairs to her basement and has been able to navigate them . Pt is retired. Has not tried all activities like vacuuming. States she has also had some swelling still. Patient returns to [place] in [place]. Patient goal: be able to do her normal exercise routine (biked 45 minutes at the gym) Reported Pain Level Pain Score 0: Self Report Assessment PT Clinical Summary The patient is s/p L TKA on 07/08/23. She presents with decreased knee flexion and extension (+5 to 91), decreased LE strength, and gait impairments which are contributing to her pain and difficulty with all activities including returning to her typical exercise routine. She will benefit from therapy to address these impairments to reduce pain and return to full function. Plan of Care Interventions Electrical Stimulation,Gait Training,Hot Pack/Cold Pack,Manual Therapy,Neuro Re-education,Patient/ Caregiver Education,Therapeutic Activities, Therapeutic Exercise PT Services Indicated Yes Treatment Frequency and 2 times a week for 8 visits Duration These treatments will address the objective and functional deficits as defined above. The patient will be advanced safely and appropriately in order for the patient to progress towards his/her prior level of function. Additional exercises will be introduced and as well as a comprehensive home exercise program upon discharge, if needed, ?to ensure carryover of functional gains achieved in the clinic. This treatment plan has been reviewed and agreement upon by the patient.
--- NOTE | 2023-09-03 08:41 | PTOPDC ---
Assessment and note entered by Brandee Barrera, PT Evaluation Information Assessment Status Discharge Subjective Information is doing well; goes to [facility] for bicycle 40 min; have not done any weights yet; do the exercises at home for knee 2x/day; is doing everything at home that she usually does; ready to be done with therapy; Reported Pain Level Pain Score 0: Self Report Additional Pain Score Comments no pain in knee, stretching with exercises, but not painful; not using any pain meds; other knee hurts though-discussed knee brace PRN for R; Assessment PT Clinical Summary Maureen has received 8 PT sessions. Compared to the initial evaluation: does not have pain in L knee; active ROM of knee in sitting is 0-110'; good strength of L hip and knee; educated and progressed HEP; she has returned to her normal activity level and has a good gait pattern. She reports increased pain in the other knee. The goals were achieved, except knee flexion goal to 120'. She has 110' Discharge PT services. Plan of Care PT Services Indicated No
== END 2023-09-03 13:51 | disposition home or self-care (01) ==
LOC: ANHPT 08:00
PROVIDERS: PCP Internal Medicine; Visit Provider Orthopaedic Surgery
DX: Z47.1 Aftercare following joint replacement surgery (principal); Z96.652 Presence of left artificial knee joint
CPT/HCPCS: 97014; 97110; 97140; 97161; 97530; G0283

== ENCOUNTER 2023-11-11 14:02 | Outpatient (CLI) | payer MEDICARE, OTHER, SELFPAY ==
[2023-11-11 15:12] LABS: Appearance Urine Cloudy (Clear); Bacteria Urine None Seen /hpf; Bilirubin Urine Negative (Negative); Blood Urine Negative (Negative); Color Urine Yellow (Yellow); Glucose Urine UA Negative (Negative); Ketones Urine Negative (Negative); Leukocyte Esterase Ur Trace LEU/UL (Negative); Nitrate Urine Negative (Negative); Non Pathogenic Casts 0-2; Protein Urine Negative (Negative); Specific Grav Ur 1.014 (1.001-1.035); Squamous Epithelial Cell Urine None seen /hpf (Few); Urobilinogen Urine 0.2 mg/dL (<2.0); WBC Urine 0-5 /hpf
[2023-11-11 15:14] LABS: Add Urine Microscopic? YES; Basophils Absolute Auto 0.1 K/mm3 (0.0-0.1); Basophils Percent Auto 0.9 % (0.2-1.2); Eosinophils Absolute Auto 0.2 K/mm3 (0-0.3); Eosinophils Percent Auto 3.5 % (0-4.4); Hematocrit 43.9 % (37.0-47.0); Hemoglobin 13.9 g/dL (12.0-15.0); Immature Granulocyte Absolute 0.02 K/mm3 (0.00-0.031); Immature Granulocyte Percent A 0.3 % (0-0.5); Lymphocytes Absolute Auto 1.53 K/mm3 (0.9-3.2); Lymphocytes Percent Auto 22.5 % (18.3-44.2); Mean Corpuscular HGB Conc 31.7 g/dl (32-36); Mean Corpuscular Hemoglobin 28.4 pg (26-34); Mean Corpuscular Volume 89.6 fl (80-100); Mean Platelet Volume 9.8 fl (7.4-10.4); Monocytes Absolute Auto 0.6 K/mm3 (0.1-0.6); Neutrophils Absolute Auto 4.3 K/mm3 (1.3-6.7); Neutrophils Percent Auto 63.8 % (45.5-73.1); Platelet Count Result 321 k/mm3 (150-375); Red Cell Distribution Width 13.3 % (11.5-14.5); White Blood Count 6.8 K/mm3 (4.5-10.0)
[2023-11-11 15:22] LABS: Albumin Level 4.6 g/dL (3.5-5.1); Anion Gap 6 mmol/L (8-16); Blood Urea Nitrogen 21 mg/dL (7-17); Calcium 10.1 mg/dL (8.4-10.2); Carbon Dioxide 31 mmol/L (22-30); Chloride 104 mmol/L (98-107); Estimated Glomerular Filt Rate > 60; Glucose 91 mg/dL (65-110); INR 0.9; Potassium 3.8 mmol/L (3.4-5.0); Prothrombin Time 12.5 Seconds (11.1-14.7); Sodium 141 mmol/L (137-145)
[2023-11-11 15:23] LABS: Partial Thromboplastin Time 28.1 SECONDS (22.3-36.8)
[2023-11-11 15:26] LABS: Urine Cotinine NEGATIVE
[2023-11-11 15:42] LABS: Hemoglobin A1C 5.8 % (<5.7)
[2023-11-11 16:26] LABS: MRSA (PCR) NOT DETECTED (NOT DETECTE)
== END 2023-11-11 14:03 | disposition home or self-care (01) ==
LOC: ANHSURGERY 14:06
PROVIDERS: PCP Internal Medicine; Visit Provider Orthopaedic Surgery
DX: M17.11 Unilateral primary osteoarthritis, right knee (principal); Z01.818 Encounter for other preprocedural examination
CPT/HCPCS: 80048; 80307; 81001; 82040; 83036; 85025; 85610; 85730; 87641

== ENCOUNTER 2023-12-02 03:08 | Day surgery (SDC) | payer MEDICARE, OTHER, SELFPAY ==
[2023-11-11 14:19] VITALS: BP 150/82; PULSE 85; RESP 16; TEMP 37.3; O2SAT 98; BMI 27.4
--- NOTE | 2023-11-11 14:29 | PC.NURSE ---
Report to the Outpatient Waiting Room, entrance under the green pavilion located off [facility], at time __6:00AM on date __12/02/23 . Planned Procedure Time: ___7:30AM . Time changes happen often and if your time is changed the preop area will call you the afternoon before. - You and your visitor will be asked to self-screen and do not enter if you have any COVID symptoms. - A mask is optional within the hospital at this time. Patients may have clear liquids (water, carbonated beverages, clear teas, apple juice) until 3 hours prior to surgery with a maximum of 20 ounces. - No food from midnight until time of surgery. Take the following medications with a SIP of water the morning of surgery: ___DILTIAZEM, LEVOTHYROXINE DO NOT STOP ANY OF YOUR OTHER PRESCRIPTION MEDICATIONS PRIOR TO SURGERY ?EXCEPT THE FOLLOWING Medications to discontinue per physician ____HOLD ALL VITAMINS/SUPPLEMENTS 7 DAYS PRE-OP PER DR THEODORE Date to take last dose 11/24/23 Please no make-up, nail norwegian, hairspray, perfume, deodorant, or body powder the day of surgery. No jewelry (including any body piercings) or valuables the day of surgery, leave them at home. Please take a shower or bath the night before, or the morning of, surgery with an antibacterial soap. Wear comfortable, loose fitting clothing. - Jewelry must be removed prior to entering the operating room. Rings and piercings that are not removed may be cut off. - The hospital will not accept responsibility for valuables. - Please leave all valuables, including medications, at home the day of surgery. If you are going home after surgery, a licensed rail car driver must drive you home. - NO public transportation without another adult if you receive anesthesia. - We recommend that an adult stay with you for 24 hours following discharge. - We also recommend that you do not drive, make important decision, drink alcoholic beverages, or take any drugs that were not prescribed by your health care provider for at least 24 hours after your discharge time. Follow any additional instructions given to you from your surgeon. If you or anyone in your household have experienced Covid symptoms in the past week, please notify your surgeon or the nurse liaison at the phone number below for possible testing. Telephone instructions given to ____PATIENT and asked if any additional questions and then verbalized understanding. Patient advised to call surgeon office or pre surgery nurse liaison [phone] if any additional questions.
[2023-12-02] VITALS (13 sets, daily range): BP systolic 117–156; BP diastolic 63–86; PULSE 61–95; RESP 12–18; TEMP 35.9–36.8; O2SAT 95–99
--- NOTE | ~2023-12-02 | XR_ITS ---
EXAMINATION: [id number] DATE: 12/02/2023 10:38 INDICATION: Postoperative evaluation following right total knee arthroplasty. TECHNIQUE: Anteroposterior and lateral views of the right knee were obtained. COMPARISON: None. FINDINGS: Right total knee arthroplasty without patellar resurfacing appears well seated and in near anatomic a lignment. No fractures identified. Anterior skin merry and expected postoperative subcutaneous and intra-articular gas. IMPRESSION: 1. Right total knee arthroplasty, negative for postoperative purposes. Reviewed, dictated and finalized at location A.
[2023-12-02] MEDS: LACTATED RINGERS 1,000 ML 30 ML IV CONT ×2 (06:20→10:17)
[2023-12-02] MEDS: ACETAMINOPHEN 500 MG TABLET 1000 MG PO (06:26)
[2023-12-02] MEDS: TRANEXAMIC ACID 1,000MG/ISO100 1,000 MG/100 ML BAG 200 MG IVPB (06:26)
--- NOTE | 2023-12-02 06:56 | WPDANESEPPF ---
Anes - Initial Pre Proc Eval Procedure: Operation Date: 12/02/23 07:30 Proposed Procedures p Right Total Knee Arthroplasty - Eric Andrade MD Date/Time: 12/02/23 06:56 Surgeon: Eric Andrade MD Pre Op Diagnosis: Right Knee DJD Patient Data Age: 68 Gender: F Height: 1.6 m Weight: 70.5 kg Last Vital Signs Temp 36.8 C 12/02/23 06:02 Pulse 95 12/02/23 06:02 Resp 18 12/02/23 06:02 BP 156/86 H 12/02/23 06:02 Pulse Ox 98 12/02/23 06:02 O2 Del Method Room Air 12/02/23 06:02 Allergies Allergy/AdvReac Type Severity Reaction Status Date / Time No Known Allergies Allergy Verified 12/02/23 06:36 Home Medications Medication Instructions Recorded Confirmed Type diltiazem HCl 240 mg 240 mg PO QAM 10/21/20 12/02/23 History capsule,extended release 24 hr levothyroxine 75 mcg tablet 75 mcg PO QAM 10/21/20 12/02/23 History rosuvastatin 5 mg tablet 5 mg PO QAM 10/21/20 12/02/23 History hydrochlorothiazide 12.5 mg tablet 12.5 mg PO HS 06/15/23 12/02/23 History calcium carbonate 600 mg-vitamin 2 cap PO QAM 06/24/23 12/02/23 History D3 12.5 mcg (500 unit) capsule (Calcium 600 with Vitamin D3) melatonin 10 mg tablet 10 mg PO HS PRN Sleep 06/24/23 12/02/23 History multivitamin with calcium and 1 tablet PO QAM 06/24/23 12/02/23 History minerals-folic acid 200 mcg tablet (One-A-Day Proactive 65 Plus) lisinopril 40 mg tablet 40 mg PO HS 11/11/23 12/02/23 History Patient hx anesthesia problems: none Family hx anesthesia problems: none Results Review: All pre-operative results and documents have been reviewed as part of the pre-operative evaluation. [facility] Past Medical History Medical History Degenerative joint disease of knee Elevated HDL Heart murmur HTN (hypertension) Hypothyroidism Osteoarthritis of right knee Primary osteoarthritis of left knee Surgical History Surgical History History of appendectomy History of arthroscopy of left knee History of hysterectomy for benign disease History of meniscectomy of right knee S/P right knee arthroscopy S/P total knee arthroplasty Lt TKA 07/08/23 Family History Family History Father Family history of primary malignant neoplasm of liver Mother Family history of malignant neoplasm of breast in first degree relative Family history of malignant neoplasm of uterus Hypertension Social History Social History Smoking status: Never smoker Second hand tobacco smoke exposure: No Additional smoking assessment comments: PT DENIES ALL FORMS OF TOBACCO USE Alcohol intake: never Substance use: never Substance use type: does not use Lack of Transportation: No Lack of Food: Never True Current Housing: I Have Housing Concerned About Future Housing: No Difficulty Paying Gas/Electric Bills: No Difficulty Paying for Meds: No Currently Unemployed: No Education: Bachelor's Degree Difficulty w/ Childcare or Family Care: No Living arrangements: with family Additional living arrangements comments: [facility] Occupation/Education: retired Gender identity (if verbalized by the patient): Female Sexual Orientation (if Verbalized by the Patient): Straight or Heterosexual Spiritual care concerns: No Anes - Eval Final PreProcedure Day of Procedure 12/02/23 06:56 Patient weight: overweight Heart: regular rate and rhythm Lungs: clear to auscultation Airway: Mallampati scale class II Neurological: alert and oriented Last oral intake: >/= 8 hours ASA classification: II Emergent: no Anesthetic plan: proceed Anesthesia type and monitoring: general LMA and standard monitoring Results Review: All pre-operative results and documents have been reviewed as part of the pre-operative e
--- NOTE | 2023-12-02 07:18 | SUR.PREOP ---
PT AND INFORMED OF SURGEON ARRIVING 20 MIN LATE.
--- NOTE | 2023-12-02 07:46 | WPDHPUPDATE1 ---
History and Physical Update Update Date/Time: 12/02/23 07:46 History and Physical has been reviewed, including an updated exam of the patient. There are NO changes in the patient's condition. Risks, benefits, and alternatives have been discussed and questions answered. Patient agrees to proceed with procedure.
--- NOTE | 2023-12-02 08:03 | WPDANESPNB ---
Anes - Peripheral Nerve Block Date/Time: 12/02/23 08:03 I have discussed with the patient/family/POA the placement of a peripheral nerve block for post-operative pain management, including associated risks, benefits, complications, and side effects. Alternative methods of post-operative analgesia were detailed. Questions were solicited and answers provided to the satisfaction of the patient/family/POA. Time-Out: A pre-procedural Time-Out was completed immediately before starting the procedure and confirmed: Patient Identification, Site, Procedure, Patient Position and the Availability of Requisite Equipment. Clinical Indications: Acute post-operative pain management requested by the operative surgeon. Nerve Block Insertion Note Anes-nerve block: adductor canal right Patient position: supine Skin prep: chlorhexidine Needle: 22 gauge, stimulating, insulated echogenic needle. Needle length: 80 mm Technique: ultrasound Injectate: bupivacaine 0.5% with epi 5 mcg/ml (30cc) Observations: tolerated well Complications: none Procedure start time:: 756 Procedure end time:: 801
[2023-12-02] MEDS: ceFAZolin 2 GM/D5W 50 ML 2 GM/50 ML BAG IVPB ×3 (08:06→23:58)
[2023-12-02] MEDS: SODIUM CHLORIDE 0.9% IV 37.7 ML, MORPHINE SULFATE INJ (*CRX) 2 MG, ROPivacaine HCL 1% 2... INFILTRATE (09:02)
[2023-12-02] MEDS: TRANEXAMIC ACID 1,000 MG/10 ML AMPUL 1000 MG IV PUSH (09:35)
--- NOTE | 2023-12-02 10:22 | P.OP_ITS ---
Procedure Note - Detailed Date of Procedure 12/02/23 Pre-op Diagnosis Right Knee DJD Post-op Diagnosis Same Procedure Performed RIGHT TKA Surgeon Eric Andrade MD Anesthesia General Description of Procedure THE RIGHT KNEE WAS PREPPED AND DRAPED IN THE STERILE FASHION. A MIDLINE SKIN INCISION WAS MADE. A MEDIAL PARAPATELLAR ARTHROTOMY WAS MADE. THE PATELLA WAS EVERTED. AN INTRAMEDULLARY ASHLEY WAS PLACED IN THE FEMUR. A DISTAL FEMORAL CUT WAS MADE IN 5 DEGREES OF VALGUS REMOVING APPROXIMATELY 9 MM OF BONE FROM THE DISTAL FEMUR. THE FEMUR WAS SIZED TO 65. A 65 FEMORAL CUTTING BLOCK WAS PLACED IN 3 DEGREES OF EXTERNAL ROTATION AND IN ALIGNMENT WITH GILLIAN'S LINE AND THE TRANSEPICONDYLAR AXIS. ANTERIOR POSTERIOR AND CHAMFER CUTS WERE MADE. THE CUTS WERE EXCELLENT. NEXT AN INTRAMEDULLARY CUTTING GUIDE WAS PLACED IN THE TIBIA. A TRANS TIBIAL CUT WAS MADE ALONG THE LONG AXIS OF THE TIBIA. APPROXIMATELY 10 MM OF BONE WAS REMOVED FROM THE HIGH SIDE OF THE TIBIA. THE TIBIA WAS THEN PLANED TO A SMOOTH SURFACE. POSTERIOR FEMORAL OSTEOPHYTES WERE REMOVED FROM THE FEMORAL CONDYLES. A 71 TIBIAL TRIAL WAS PLACED IN ALIGNMENT WITH THE 1/3 MEDIAL ASPECT OF THE TIBIAL TUBERCLE. THEN A 65 FEMORAL TRIAL COMPONENT WAS PLACED. BOTH HAD EXCELLENT FITS. EVENTUALLY A 11 MM CR POLYETHYLENE TRIAL COMPONENT WAS PLACED. THE KNEE WAS TAKEN THROUGH A RANGE OF MOTION. THE KNEE CAME OUT TO FULL EXTENSION. THERE WAS NO ABNORMAL TILT TO THE PATELLA. THERE WAS GOOD A/P AND VARUS/VALGUS STABILITY. THERE WAS NO EXCESSIVE ROLL BACK WITH FLEXION. THE TRIAL COMPONENTS WERE REMOVED. THEN A 65 FEMORAL COMPONENT AND 71 TIBIAL COMPONENT WITH A 11 CR POLYETHYLENE COMPONENT WERE CEMENTED INTO PLACE. ONCE T HE CEMENT WAS HARD THE KNEE WAS TAKEN THROUGH A ROM AGAIN AND FOUND TO BE STABLE WITH NO PATELLA TILT NO EXCESSIVE ROLL BACK WITH FLEXION AND GOOD STABILITY WITH COMPLETE AND FULL EXTENSION. THE KNEE WAS IRRIGATED WITH STERILE BETADINE AND WATER FOR ABOUT 3 MINUTES. THE BLEEDERS WERE CAUTERIZED. THE ARTHROTOMY WAS REPAIRED WITH NUMBER 1 VICRYL. THE SUB CUTANEOUS LAYER WITH 2-0 VICRYL AND THE SKIN WITH GIFTY. THE WOUND WAS WASHED AND A STERILE DRESSING WAS APPLIED. PATIENT WAS EXTUBATED. Estimated Blood Loss -150.0 Pathology None sent Complications No immediate complications Condition Stable Disposition PACU
[2023-12-02] MEDS: fentaNYL CITRATE INJ (*CRX) 100 MCG/2 ML VIAL 25 MCG IV PUSH ×12 (10:35→12:15)
--- NOTE | 2023-12-02 12:35 | PC.NURSE ---
This patient, Maureen Mcmahon, was admitted to [facility] Surg Room 327-01. Patient/family oriented to hospital policies and general routines including ID bracelet, bed and alarms, visiting hours, pain management, procedures, bathroom and other care routines, personal items, smoking policy, room service/diet, and visiting hours. Information on how to activate the Rapid Response Team has been discussed. Patient/Family are encouraged to report perceived risks to care and to ask questions if they do not understand what they are told or what they should do.
[2023-12-02] MEDS: oxyCODONE/ACETAMINOPHEN (*CRX) 5-325 MG TABLET 2 TABLET PO ×2 (13:01→20:45)
[2023-12-02] MEDS: CALCIUM/VITAMIN D 500 MG/5 MCG (200 I.U.) TABLET 1000 MG PO (14:30)
[2023-12-02] MEDS: ASPIRIN 325 MG ENTERIC TABLET PO ×2 (14:30→20:44)
[2023-12-02] MEDS: ROSUVASTATIN 5 MG TABLET PO (14:30)
[2023-12-02] MEDS: SODIUM CHLORIDE 0.9% IV 1,000 ML 125 ML IV CONT (14:31)
[2023-12-02] MEDS: FAMOTIDINE 20 MG TABLET PO (14:31)
[2023-12-02] MEDS: lisinopriL 20 MG TABLET 40 MG PO (20:44)
[2023-12-02] MEDS: hydroCHLOROthiazide 12.5 MG CAPSULE PO (20:44)
[2023-12-03 02:01] VITALS: BP 113/49; PULSE 61; RESP 18; TEMP 36.6; O2SAT 96
[2023-12-03] MEDS: LEVOTHYROXINE SODIUM 75 MCG TABLET PO (05:21)
[2023-12-03] MEDS: oxyCODONE/ACETAMINOPHEN (*CRX) 5-325 MG TABLET 2 TABLET PO ×2 (05:49→13:38)
[2023-12-03 06:01] VITALS: BP 124/60; PULSE 71; RESP 18; TEMP 36.5; O2SAT 96
[2023-12-03 06:57] LABS: Basophils Percent Auto 0.2 % (0.2-1.2); Eosinophils Percent Auto 0.1 % (0-4.4); Hematocrit 32.7 % (37.0-47.0); Hemoglobin 10.3 g/dL (12.0-15.0); Immature Granulocyte Absolute 0.04 K/mm3 (0.00-0.031); Immature Granulocyte Percent A 0.3 % (0-0.5); Lymphocytes Absolute Auto 0.95 K/mm3 (0.9-3.2); Lymphocytes Percent Auto 8.1 % (18.3-44.2); Mean Corpuscular HGB Conc 31.5 g/dl (32-36); Mean Corpuscular Hemoglobin 28.7 pg (26-34); Mean Corpuscular Volume 91.1 fl (80-100); Mean Platelet Volume 10.1 fl (7.4-10.4); Monocytes Absolute Auto 1.1 K/mm3 (0.1-0.6); Neutrophils Absolute Auto 9.7 K/mm3 (1.3-6.7); Neutrophils Percent Auto 82.3 % (45.5-73.1); Platelet Count Result 271 k/mm3 (150-375); Red Blood Count 3.59 M/mm3 (4.2-5.4); Red Cell Distribution Width 13.3 % (11.5-14.5); White Blood Count 11.7 K/mm3 (4.5-10.0)
[2023-12-03 07:18] LABS: Anion Gap 6 mmol/L (8-16); Blood Urea Nitrogen 21 mg/dL (7-17); Calcium 8.7 mg/dL (8.4-10.2); Carbon Dioxide 25 mmol/L (22-30); Chloride 104 mmol/L (98-107); Estimated CRCL calculation 44 ml/min; Estimated Glomerular Filt Rate 55; Glucose 119 mg/dL (65-110); Potassium 4.4 mmol/L (3.4-5.0); Sodium 135 mmol/L (137-145)
[2023-12-03] MEDS: ceFAZolin 2 GM/D5W 50 ML 2 GM/50 ML BAG IVPB (08:48)
[2023-12-03] MEDS: dilTIAZem HCL CD 240 MG CAP.24HR PO (08:49)
[2023-12-03] MEDS: SENNA/DOCUSATE SODIUM TABLET 2 TAB PO ×2 (08:49→17:03)
[2023-12-03] MEDS: CALCIUM/VITAMIN D 500 MG/5 MCG (200 I.U.) TABLET 1000 MG PO (08:49)
[2023-12-03] MEDS: ROSUVASTATIN 5 MG TABLET PO (08:50)
[2023-12-03] MEDS: ASPIRIN 325 MG ENTERIC TABLET PO (08:50)
[2023-12-03 10:01] VITALS: BP 121/60; PULSE 62; RESP 18; TEMP 36.8; O2SAT 93
[2023-12-03 14:01] VITALS: BP 126/57; PULSE 66; RESP 18; TEMP 36.9; O2SAT 96
--- NOTE | 2023-12-03 14:04 | WPDANESPN ---
Anes - Prog Note Post-Op Date/Time: 12/03/23 14:04 Cardiovascular status: normal Respiratory status: normal Airway patency: baseline Mental status: baseline Post-Op hydration status: normal Vital Signs: Last Vital Signs Temp 36.8 C 12/03/23 10:01 Pulse 62 12/03/23 10:01 Resp 18 12/03/23 10:01 BP 121/60 12/03/23 10:01 Pulse Ox 93 12/03/23 10:01 O2 Del Method Room Air 12/03/23 08:50 O2 Flow Rate 2 12/02/23 12:00 Pain Score (VAS): 0/10 I/O: Intake & Output 12/02/23 12/03/23 12/03/23 23:59 07:59 15:59 Intake Total 1650 750 240 Balance 1650 750 240 Laboratory Tests 12/03/23 06:13 12/03/23 06:13 12/03/23 06:13 WBC 11.7 H RBC 3.59 L Hgb 10.3 L D Hct 32.7 L MCV 91.1 MCH 28.7 MCHC 31.5 L RDW 13.3 Plt Count 271 MPV 10.1 Immature Gran % (Auto) 0.3 Neut % (Auto) 82.3 H Lymph % (Auto) 8.1 L [place] % (Auto) 9.0 H Eos % (Auto) 0.1 Baso % (Auto) 0.2 Lymph # (Auto) 0.95 [place] # (Auto) 1.1 H Eos # (Auto) 0.0 Baso # (Auto) 0.0 Abs Immat Gran (auto) 0.04 H Absolute Neuts (auto) 9.7 H Absolute Nucleated RBC 0.000 Nucleated RBC % 0.0 Sodium 135 L Potassium 4.4 Chloride 104 Carbon Dioxide 25 Anion Gap 6 L BUN 21 H Creatinine 1.00 Estim Creat Clear Calc 44 Estimated GFR 55 L Glucose 119 H Calcium 8.7 Post-procedural complaints: none Patient Feedback: Patient satisfied with anesthetic care.
--- NOTE | 2023-12-03 17:37 | PM.PNORT ---
Progress Note: A&P Assessment and Plan (1) S/P total knee arthroplasty: Qualifiers: Laterality: left Qualified Code(s): Z96.652 - Presence of left artificial knee joint Code(s): Z96.659 - Presence of unspecified artificial knee joint Status: Acute Assessment and Plan: POD 1 DOING WELL. OK TO DC HOME F/U IN 3 WEEKS Subjective Subjective Date/Time Seen: 12/03/23 17:37 Interval history: POD 1 DOING WELL GOOD PROGRESS WITH PT. NO CALF PAIN Exam Extrem: Other: VSS AFEBRILE DRESSING DRY NV INTACT NEG HOMANS SIGN CALF SOFT NON TENDER Objective Data Vital Signs Vital Signs: Vital Signs - 24 hr 12/02/23 22:01 12/03/23 02:01 12/03/23 06:01 Temperature 36.8 C 36.6 C 36.5 C Pulse Rate 73 61 71 Respiratory Rate 18 18 18 Blood Pressure 123/65 113/49 L 124/60 Pulse Oximetry 96 96 96 Oxygen Delivery 12/03/23 10:01 12/03/23 08:50 12/03/23 14:01 Temperature 36.8 C 36.9 C Pulse Rate 62 66 Respiratory Rate 18 18 Blood Pressure 121/60 126/57 L Pulse Oximetry 93 96 Oxygen Delivery Room Air Intake/Output Intake/Output: Intake & Output 11/30/23 12/01/23 12/02/23 12/03/23 23:59 23:59 23:59 23:59 Intake Total 2340 1212 Balance 2340 1212 Meds/Results Medications: Active Medications Generic Name Dose Route Start Last Admin Trade Name Freq PRN Reason Stop Dose Admin Acetaminophen 1,000 mg 12/02/23 12:16 Acetaminophen 500 Mg Tablet PO Q6H PRN Pain Rated 1-3 Aspirin 325 mg 12/02/23 12:16 12/03/23 08:50 Aspirin 325 Mg Enteric Tablet PO 325 mg Q12HR GLENN Administration Calcium Carbonate 1,000 mg 12/02/23 12:16 12/03/23 08:49 Calcium/Vitamin D 500 Mg/5 Mcg (200 I.U.) Tablet PO 01/01/24 12:15 1,000 mg QAM GLENN Administration Diazepam 5 mg 12/02/23 12:16 Diazepam (*Crx) 5 Mg Tablet PO Q8H PRN Spasms Diltiazem HCl 240 mg 12/03/23 09:00 12/03/23 08:49 Diltiazem Hcl Cd 240 Mg Cap.24hr PO 240 mg QAM GLENN Administration Diphenhydramine HCl 25 mg 12/02/23 12:16 Diphenhydramine Hcl Inj 50 Mg/Ml Vial IV PUSH Q6H PRN Itching Famotidine 20 mg 12/02/23 12:16 12/03/23 08:51 Famotidine 20 Mg Tablet PO Not Given Q12HR GLENN Hydrochlorothiazide 12.5 mg 12/02/23 21:00 12/02/23 20:44 Hydrochlorothiazide 12.5 Mg Capsule PO 12.5 mg HS [facility] Administration Ketorolac Tromethamine 15 mg 12/02/23 12:25 Ketorolac 15 Mg/Ml Vial (*Bkc) IV PUSH Q6HR GLENN Levothyroxine Sodium 75 mcg 12/03/23 06:30 12/03/23 05:21 Levothyroxine Sodium 75 Mcg Tablet PO 75 mcg DAILY@0630 [facility] Administration Lisinopril 40 mg 12/02/23 21:00 12/02/23 20:44 Lisinopril 20 Mg Tablet PO 40 mg HS [facility] Administration Naloxone HCl 0.1 mg 12/02/23 12:16 Naloxone Hcl 0.4 Mg/Ml Vial IV PUSH Q2M PRN Opiate Reversal Ondansetron HCl 4 mg 12/02/23 12:16 Ondansetron Inj 4 Mg/2 Ml Vial IV PUSH Q4H PRN Nausea And Vomiting Oxycodone/Acetaminophen 1 tablet 12/02/23 12:16 Oxycodone/Acetaminophen (*Crx) 5-325 Mg Tablet PO Q4H PRN Pain Rated 4-6 Oxycodone/Acetaminophen 2 tablet 12/02/23 12:16 12/03/23 13:38 Oxycodone/Acetaminophen (*Crx) 5-325 Mg Tablet PO 2 tablet Q6H PRN Administration Pain Rated 7-10 Polyethylene Glycol 17 gm 12/02/23 12:16 12/03/23 08:52 Polyethylene Glycol 3350 17 Gm Powd.Pack PO Not Given QAM [facility] Rosuvastatin Calcium 5 mg 12/02/23 12:16 12/03/23 08:50 Rosuvastatin 5 Mg Tablet PO 5 mg QAM [facility] Administration Senna/Docusate Sodium 2 tab 12/02/23 12:16 12/03/23 17:03 Senna/Docusate Sodium Tablet PO 2 tab BID GLENN Administration Radiology Results: ITS Impressions Knee X-Ray 12/02/23 10:53 IMPRESSION: 1. Right total knee arthroplasty, negative for postoperative purposes. Labs Labs: Laboratory Results - last 24 hr 12/03/23 06:13 WBC 11.7 H RBC
--- NOTE | 2023-12-03 17:39 | PM.DS ---
DS: Admitting Diagnosis Discharge Date 12/03/23 Admitting Diagnosis RIGHT KNEE DJD DS: Discharge Diagnosis Discharge Diagnosis (1) S/P total knee arthroplasty: Qualifiers: Laterality: left Qualified Code(s): Z96.652 - Presence of left artificial knee joint Code(s): Z96.659 - Presence of unspecified artificial knee joint Status: Acute DS: Summary Hospital Course Reason for hospitalization: R TKA Hospital Course: PATIENT WAS ADMITTED S/P TOTAL KNEE ARTHROPLASTY FOR POSTOPERATIVE MEDICAL MANAGEMENT, PAIN CONTROL AND MOBILIZATION WITH PHYSICAL AND OCCUPATIONAL THERAPY. THE PATIENT PROGRESSED WELL WITH PT/OT. LABS AND VITALS REMAINED STABLE AND PAIN WELL CONTROLLED. THE PATIENT HAS BEEN CLEARED TO BE DISCHARGED HOME. FOLLOW UP APPOINTMENT SCHEDULED. DISCHARGE INSTRUCTIONS DISCUSSED AT LENGTH WITH THE PATIENT. MEDICATIONS REVIEWED. Status at Discharge Cognitive/behavioral status at discharge: STABLE Time Spent with Patient Time attestation: Total time spent providing and/or coordinating discharge services: DS: Data Data Completed and Pending Labs on day of discharge: Labs from last 24 hours 12/03/23 06:13 WBC 11.7 H RBC 3.59 L Hgb 10.3 L D Hct 32.7 L MCV 91.1 MCH 28.7 MCHC 31.5 L RDW 13.3 Plt Count 271 MPV 10.1 Immature Gran % (Auto) 0.3 Neut % (Auto) 82.3 H Lymph % (Auto) 8.1 L [place] % (Auto) 9.0 H Eos % (Auto) 0.1 Baso % (Auto) 0.2 Lymph # (Auto) 0.95 [place] # (Auto) 1.1 H Eos # (Auto) 0.0 Baso # (Auto) 0.0 Abs Immat Gran (auto) 0.04 H Absolute Neuts (auto) 9.7 H Absolute Nucleated RBC 0.000 Nucleated RBC % 0.0 Sodium 135 L Potassium 4.4 Chloride 104 Carbon Dioxide 25 Anion Gap 6 L BUN 21 H Creatinine 1.00 Estim Creat Clear Calc 44 Estimated GFR 55 L Glucose 119 H Calcium 8.7 Procedures/Treatments: R TKA Discharge Plan Discharge Patient Disposition: Home Health Service Discharge Instructions: Post Op Total Knee Replacement Instructions Dr. Eric Andrade [phone] Your dressing will be changed prior to your discharge. You will be sent home with one additional dressing to be changed on post op day 7 by the home health RN. Your merry will be removed on the 14th day after surgery and steri-strips will be placed. Please practice good hand hygiene and do not touch your incision in order to prevent infection. You may shower with your dressing but do not submerge in a bath tub. Do not drive or operate machinery until you are released by Dr. Andrade. Do not walk without a walker for any reason until you are released by Dr. Andrade. Continue to use your ice machine. Please use a towel or pillow case to protect your skin before applying your ice machine. Do NOT place a pillow under your knee. You may use a pillow from the calf down if needed. This will prevent a flexion contracture postoperatively. You may begin use of your CPM machine at home if you have been given one pre-operatively. DO NOT USE WHILE YOU ARE SLEEPING. Your first post op appointment was sent to you via mail preoperatively. If you have any questions or are unable to make your appointment, please contact our office for scheduling questions. Your medications have been sent to your pharmacy. You have been sent home with pain medication. Please chicken picker an over the counter stool softener to prevent constipation due to narcotic use. Please keep this in mind during your postoperative recovery. If you are not experiencing regular bowel movements, please contact our office for further instruction. Please contact our office with any questions/concerns regarding your knee at [phone]. Patient Instructions: Antibiotic Form Stand Alone Forms: General Discharge Information Follow-up/Referrals: Eric Andrade MD [Physician] - Keep Reg. Scheduled Appt. Discharge Medications: New aspirin 325 mg Tablet,Delayed Release (Dr/Ec) 325 mg PO Q12HR 28 Days Qty:
== END 2023-12-03 17:35 | disposition home health service (06) ==
LOC: ANHSURGERY 05:58 → ANH3MEDSUR 12:19
PROVIDERS: PCP Internal Medicine; Visit Provider Orthopaedic Surgery
PROC: (CPT 27447; principal; 2023-12-02 07:30)
DX: M17.11 Unilateral primary osteoarthritis, right knee (principal); G89.18 Other acute postprocedural pain; I10 Essential (primary) hypertension; E03.9 Hypothyroidism, unspecified; E78.5 Hyperlipidemia, unspecified
CPT/HCPCS: 27447; 64447; 36415; 73560; 80048; 85025; 86850; 86900; 86901; 97110; 97116; 97161; 97165; 97530; 97535; A9270; C1713; C1776; J0171; J0690; J1100; J1170; J1885; J2250; J2270; J2405; J2704; J2795; J3010; J3370; J7030; J7120

== ENCOUNTER 2024-01-21 08:00 | Outpatient (RCR) | payer MEDICARE, OTHER, SELFPAY ==
--- NOTE | 2023-12-30 17:43 | PTOPEVAL1 ---
Assessment and note entered by Taylor Corbett, PT Evaluation Information Assessment Status Evaluation Diagnosis R knee pain Onset 12/02/2023 Subjective Information Pt. reports had TKR 4 weeks ago, states was receiving HH therapy, currently feeling stiffness and discomfort to R knee; reports limitation in walking longer distances, needing extra time with performing tasks including household tasks, getting in and out of the car, due to discomfort to the knee. Stiffness noted after being in a prolonged position or prolonged weight bearing, pt states applying ice pack for relief. Pt's goal for therapy is to improve mobility, muscle endurance, strength and stability of the knee to be able to perform activities without discomfort. Reported Pain Level Pain Score 3: Self Report Assessment PT Clinical Summary Pt. underwent R TKR last 12/02/2023 with history of L TKR 07/08/2023. Reports some tightness and discomfort to R knee, aggravated by sitting or standing for prolonged periods of time, highest pain of 5/10 and 2/10 lowest pain rating. Presents with edema, impaired strength, impaired functional mobility, decreased muscle endurance, stiffness, muscle tightness and discomfort. Continued skilled PT necessary to improve mobility , reduce pain and discomfort to allow for improved IADL's. Plan of Care Interventions Electrical Stimulation,Gait Training,Hot Pack/Cold Pack,Manual Therapy,Neuro Re-education,Patient/ Caregiver Educati,Therapeutic Activities, Therapeutic Exercise Other Interventions vasopneumatic compression PT Services Indicated Yes Treatment Frequency and 3x/week for 10 visits Duration These treatments will address the objective and functional deficits as defined above. The patient will be advanced safely and appropriately in order for the patient to progress towards his/her prior level of function. Additional exercises will be introduced and as well as a comprehensive home exercise program upon discharge, if needed, ?to ensure carryover of functional gains achieved in the clinic. This treatment plan has been reviewed and agreement upon by the patient.
--- NOTE | 2024-01-21 13:30 | OPREHPOC ---
Outpatient Therapy Plan of Care This is a Multidisciplinary Plan of Care that may contain components documented by all disciplines (PT, OT, and ST.) PT Problem 1 PT Problem #1 Knowledge Deficit PT Goal 1 Goal pt will demonstrate indep HEP to BLE muscles. Target Visit 2 Progress Met PT Problem 2 PT Problem #2 Pain PT Goal 1 Goal Pt. will report 0/10 pain/discomfort to R knee with bending and walking. Progress Met PT Goal 2 Target Visit 8 PT Problem 3 PT Problem #3 Impaired Range of Motion PT Goal 1 Goal pt will demonstrate 0-135 degrees normal ROM of R knee without pain/discomfort. Target Visit 10 Progress Partially Met Comment Improved to 115 degrees matching opposite knee PT Problem 4 PT Problem #4 Edema PT Goal 1 Goal Pt will demonstrate a reduction of R knee edema to at least 2 cm. Target Visit 8 Progress Met PT Problem 5 PT Problem #5 Impaired Gait PT Goal 1 Goal pt will demonstrate heel strike during initial contact, improve knee flexion through swing phase of gait. Target Visit 10 Progress Met PT Goal 2 Target Visit 10
--- NOTE | 2024-01-21 13:30 | PTOPDC ---
Assessment and note entered by Tony Dickinson, PT Evaluation Information Assessment Status Discharge Diagnosis R knee pain Onset 12/02/2023 Subjective Information Reports that over the past week she has noticed a lot of change. She has been at the [facility] riding bike and resuming exercise with little to no pain. She has no concerns at this time with her progress. Does think that retrospectively she has seen a lot of progress. Would like to discharge to [facility] at this time. Reported Pain Level Pain Score 0: Self Report Pain Score 0: Self Report Assessment PT Clinical Summary Patient has made notable improvement in knee ROM and strength of both knee and hip. Gait cycle is improve but still showing some minor deviation. Patient has a very good understanding of current ambulation and functional deficits and HEP to address both. I believe she is capable of continued improvement with HEP to restore maximal function. Plan of Care PT Services Indicated D/C to HEP
== END 2024-01-21 13:43 | disposition home or self-care (01) ==
LOC: ANHPT 08:00
PROVIDERS: PCP Internal Medicine; Visit Provider Orthopaedic Surgery
DX: Z47.1 Aftercare following joint replacement surgery (principal); Z96.651 Presence of right artificial knee joint
CPT/HCPCS: 97016; 97110; 97116; 97140; 97161; 97530

== ENCOUNTER 2024-02-02 10:09 | Outpatient (CLI) | payer MEDICARE, OTHER, SELFPAY ==
--- NOTE | ~2024-02-02 | DEXA_ITS ---
Bone Density Report Name: JESSA RAMON Age: 68 Sex: Female Ethnicity: White Date of : 1955 Indication: osteopenia; parental hip fracture; hysterectomy; Referring Provider: UMANG STRICKLAND Study: Bone densitometry was performed. Exam Date: February 02, 2024 Accession number: [id number] Bone Density: Region BMD T-score Z-score Classification AP Spine (L1-L4) 1.011 -0.3 1.8 Normal Femoral Neck (Left) 0.730 -1.1 0.7 Osteopenia Total Hip (Left) 0.747 -1.6 -0.1 Osteopenia Femoral Neck (Right) 0.706 -1.3 0.5 Osteopenia Total Hip (Right) 0.819 -1.0 0.5 Normal Total Hip Mean 0.783 -1.3 0.2 Osteopenia World Health Organization criteria for BMD impression classify patients as: Normal (T-score at or above -1.0), Osteopenia (T-score between -1.0 and -2.5), or Osteoporosis (T-score at or below -2.5). 10-year Fracture Risk(1): Major Osteoporotic Fracture 15% Hip Fracture 2.6% Reported Risk Factors: [place] (), Neck BMD=0.706, BMI=27.1, parental fracture (1) FRAX(R) Version 3.08. Fracture probability calculated for an untreated patient. Fracture probability may be lower if the patient has received treatment. Previous Exams: Region Exam Age BMD T-score BMD Change BMD Change Date g/cm2 vs Baseline vs Previous AP Spine(L1-L4) 02/02/2024 68 1.011 -0.3 -0.063* -0.039* 07/18/2021 65 1.050 0.0 -0.023* 0.042* 03/06/2017 61 1.008 -0.4 -0.065* 0.017 02/28/2013 57 0.991 -0.5 -0.082* -0.019 02/20/2010 54 1.010 -0.3 -0.064* -0.064* 10/09/2006 50 1.073 0.2 Total Hip(Left) 02/02/2024 68 0.747 -1.6 -0.167* -0.020 07/18/2021 65 0.767 -1.4 -0.147* -0.086* 03/06/2017 61 0.854 -0.7 -0.060* -0.065* 02/28/2013 57 0.919 -0.2 0.005 0.002 02/20/2010 54 0.917 -0.2 0.003 0.003 10/09/2006 50 0.914 -0.2 Total Hip(Right) 02/02/2024 68 0.819 -1.0 -0.159* -0.052* 07/18/2021 65 0.871 -0.6 -0.107* -0.042* 03/06/2017 61 0.914 -0.2 -0.065* -0.014 02/28/2013 57 0.927 -0.1 -0.051* 0.037* 02/20/2010 54 0.891 -0.4 -0.087* -0.087* 10/09/2006 50 0.978 0.3 *Denotes significance at 95% confidence level, LSC for AP Spine = 0.022 g/cm2, LSC for Total Hip = 0.027 g/cm2 Clinical Information Provided by Patient:
== END 2024-02-02 10:10 ==
LOC: MICIMG 10:11
PROVIDERS: PCP Internal Medicine; Visit Provider Obstetrics & Gynecology Gynecology
DX: Z78.0 Asymptomatic menopausal state (principal); M85.89 Other specified disorders of bone density and structure, multiple sites
CPT/HCPCS: 77080

== ENCOUNTER 2024-08-16 07:23 | Outpatient (CLI) | payer MEDICARE, OTHER, SELFPAY ==
--- NOTE | ~2024-08-16 | MM_ITS ---
EXAMINATION: MM screening tray BI w emmanuel HISTORY: Screening TECHNIQUE: Craniocaudal and mediolateral oblique 3-D tomosynthesis images were obtained and synthetic 2-D images were generated. CAD analysis was submitted and interpreted. COMPARISON: Comparison to multiple prior studies sequentially, with oldest reviewed study dated 03/30. BREAST PARENCHYMAL COMPOSITION: Not dense: There are scattered areas of fibroglandular density. FINDINGS: There is no evidence of suspicious mass, calcification, or architectural distortion to sugg est malignancy in either breast. There has been no suspicious interval change. IMPRESSION: 1. No mammographic evidence of malignancy. 2. Recommend routine screening mammography in one year. BI-RADS Category 1: Negative Reviewed, dictated and finalized at location B. 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
== END 2024-08-16 07:24 | disposition home or self-care (01) ==
PROVIDERS: PCP Obstetrics & Gynecology Gynecology; Visit Provider Internal Medicine
DX: Z12.31 Encounter for screening mammogram for malignant neoplasm of breast (principal)
CPT/HCPCS: 77063; 77067

== ENCOUNTER 2025-02-14 08:04 | Outpatient (CLI) | payer MEDICARE, OTHER, SELFPAY ==
--- NOTE | ~2025-02-14 | US_ITS ---
Limited Abdominal Sonogram: Real-time sonographic imaging of the right upper quadrant was performed. Clinical History: Abnormal liver enzymes Findings: The liver appears mildly echogenic, with no evidence of mass lesion or bile duct dilatatio n. Main portal vein demonstrates normal direction of flow. The gallbladder is well distended, and carlos ears normal with no evidence of gallstone or wall thickening. The common bile duct measures 6 mm. Th e visualized pancreas, aorta, and IVC are unremarkable. Impression: Diffuse fatty infiltration of the liver. Reviewed, dictated and finalized at location M. Impression: Diffuse fatty infiltration of the liver.
== END 2025-02-14 08:05 | disposition home or self-care (01) ==
PROVIDERS: PCP Internal Medicine; Visit Provider Internal Medicine
DX: R74.8 Abnormal levels of other serum enzymes (principal); K76.0 Fatty (change of) liver, not elsewhere classified
CPT/HCPCS: 76705

== ENCOUNTER 2025-08-23 10:27 | Outpatient (CLI) | payer MEDICARE, OTHER, SELFPAY ==
--- NOTE | ~2025-08-23 | MM_ITS ---
EXAMINATION: MM screening tray BI w emmanuel HISTORY: Screening. TECHNIQUE: Craniocaudal and mediolateral oblique 3-D tomosynthesis images were obtained and synthetic 2-D images were generated. CAD analysis was submitted and interpreted. COMPARISON: 2023, 2022, and 2021. BREAST PARENCHYMAL COMPOSITION: Not Dense: There are scattered areas of fibroglandular FINDINGS: No suspicious masses are seen. There are no suspicious calcifications. No unexplained architectural distortion is seen. There are no skin or nipple abnormalities identified. There is no adenopathy seen on the images submitted. IMPRESSION: No mammographic evidence to suggest malignancy is seen. The patient may return to screening mammography as per ACR guidelines. BI-RADS 1 - Negative. Reviewed, dictated and finalized at location C. 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
== END 2025-08-23 10:28 | disposition home or self-care (01) ==
LOC: MICIMG 10:28
PROVIDERS: PCP Internal Medicine; Visit Provider Obstetrics & Gynecology Gynecology
DX: Z12.31 Encounter for screening mammogram for malignant neoplasm of breast (principal)
CPT/HCPCS: 77063; 77067